=== PATIENT | male | born 1955 | race Caucasian/White ===

== ENCOUNTER 2018-07-26 08:32 | Inpatient (IN) | payer OTHER ==
[~2018-07-26] VITALS: Ht 190.5 cm; Wt 109.8 kg
[2018-07-26 08:45] VITALS: Ht 190.5 cm; Wt 109.8 kg
[2018-07-26] MEDS ORDERED: MESTINON60 MG PO (09:19)
[2018-07-26] MEDS ORDERED: LANTUS SOLOS100 U/M1 SQ ×2 (09:19→09:40)
[2018-07-26] MEDS ORDERED: KEFLEX500 M1 PO (09:19)
[2018-07-26] MEDS ORDERED: LOV40I SQ (09:20)
[2018-07-26] MEDS ORDERED: BAC (09:21)
[2018-07-26] MEDS ORDERED: CAPSAICIN60 GM (09:22)
[2018-07-26] MEDS ORDERED: REG10 PO (09:23)
[2018-07-26] MEDS ORDERED: TUMS CH (09:24)
[2018-07-26 09:25] LABS: BASOPHIL % 0.3 % (0-2); PLATELET COUNT 321 x10^3mcL (130-400)
[2018-07-26] MEDS ORDERED: MORPHINE SULFAT30 M2 PO ×2 (09:26→09:27)
[2018-07-26] MEDS ORDERED: COLACE100 MG PO (09:26)
[2018-07-26] MEDS ORDERED: XOPENEX1.25 MG/3 (09:27)
[2018-07-26] MEDS ORDERED: DULERA1 AR3 INH (09:28)
[2018-07-26] MEDS ORDERED: LIQUITEARS15 ML OP (09:28)
[2018-07-26] MEDS ORDERED: PRILOSEC OTC20 M1 PO (09:29)
[2018-07-26 09:34] LABS: RED CELL DISTRIBUTION WIDTH 17.6 % (11.5-14.5)
[2018-07-26 09:36] LABS: rbc morphology (normal/abnorm) ABNORMAL (NORMAL)
[2018-07-26] MEDS ORDERED: KETOROLAC TROMET5 M1 (09:38)
[2018-07-26] MEDS ORDERED: AFREZZA SQ (09:39)
[2018-07-26] MEDS ORDERED: NOR10 PO (09:40)
[2018-07-26 09:41] LABS: BILIRUBIN TOTAL 0.4 mg/dL (0.20-1.00); CALCIUM 9.3 mg/dL (8.5-10.1); CARBON DIOXIDE 20.2 mmol/L (21-32); FREE T4 1.45 ng/dL (0.76-1.46); POTASSIUM SERUM 4.2 mmol/L (3.5-5.1)
[2018-07-26] MEDS ORDERED: ENFAMIL D-V400 IU/ML PO (09:41)
[2018-07-26] MEDS ORDERED: FINASTERIDE5 M1 PO (09:41)
[2018-07-26] MEDS ORDERED: REPLENS1 CRE (09:42)
[2018-07-26] MEDS ORDERED: LYRICA75 M1 PO (09:43)
[2018-07-26] MEDS ORDERED: SPIRIVA18 MC1 INH (09:43)
[2018-07-26] MEDS ORDERED: TAMSULOSIN HYD0.4 M1 PO (09:43)
[2018-07-26] MEDS ORDERED: PRE20 PO (09:43)
[2018-07-26] MEDS ORDERED: VITAMIN B121000 MCG PO (09:43)
[2018-07-26] MEDS ORDERED: ALPHAGAN P5 M1 (09:44)
[2018-07-26] MEDS ORDERED: DORZOLAMIDE HCL10 ML (09:44)
[2018-07-26] MEDS ORDERED: ASSORTED FRUIT G4 GM PO (09:45)
[2018-07-26] MEDS ORDERED: HEPARIN LOCK FLU (09:45)
[2018-07-26] MEDS ORDERED: LATANOPROST2.5 ML OU (09:45)
[2018-07-26 09:47] LABS: CREATININE SERUM 4.2 mg/dL (0.7-1.3); TOTAL PROTEIN, SERUM 8.3 g/dL (6.4-8.2)
[2018-07-26 12:11] VITALS: BP 105/56
[2018-07-26 17:22] VITALS: BP 127/63
[2018-07-26 20:44] VITALS: BP 117/55
[2018-07-26 22:36] VITALS: BP 113/58
[2018-07-26 23:35] LABS: UA SPECIFIC GRAVITY >=1.030 (1.005-1.035); microscopic required? YES; urine erythrocyte 3+ (NEGATIVE)
[2018-07-26 23:55] LABS: AMPHETAMINE QUAL UR NONE DETECTED (See below)
[2018-07-27 05:30] VITALS: BP 96/57
[2018-07-27 07:28] LABS: BASOPHIL % 0.7 % (0-2); PLATELET COUNT 248 x10^3mcL (130-400)
[2018-07-27 07:29] LABS: RED CELL DISTRIBUTION WIDTH 16.9 % (11.5-14.5)
[2018-07-27 07:41] LABS: BILIRUBIN TOTAL 0.46 mg/dL (0.20-1.00); CALCIUM 8.5 mg/dL (8.5-10.1); MAGNESIUM 1.9 mg/dL (1.8-2.4); POTASSIUM SERUM 3.9 mmol/L (3.5-5.1); TOTAL PROTEIN, SERUM 7.4 g/dL (6.4-8.2)
[2018-07-27 07:50] LABS: ALBUMIN 2.5 g/dL (3.4-5.0); CREATININE SERUM 5.1 mg/dL (0.7-1.3)
[2018-07-27 10:05] VITALS: BP 109/48
[2018-07-27 13:02] VITALS: BP 105/69
[2018-07-27 17:08] VITALS: BP 98/63
[2018-07-27 20:58] VITALS: BP 102/65
[2018-07-28 06:08] VITALS: BP 104/64
[2018-07-28 07:42] LABS: BILIRUBIN TOTAL 0.35 mg/dL (0.20-1.00); CALCIUM 8.7 mg/dL (8.5-10.1); CARBON DIOXIDE 24.7 mmol/L (21-32); CREATININE SERUM 2.3 mg/dL (0.7-1.3); PHOSPHOROUS 3.8 mg/dL (2.5-4.9); POTASSIUM SERUM 4.3 mmol/L (3.5-5.1); TOTAL PROTEIN, SERUM 7.6 g/dL (6.4-8.2)
[2018-07-28 07:43] LABS: ALBUMIN 2.4 g/dL (3.4-5.0)
[2018-07-28 09:04] LABS: BASOPHIL % 0.1 % (0-2); PLATELET COUNT 233 x10^3mcL (130-400)
[2018-07-28 09:07] LABS: RED CELL DISTRIBUTION WIDTH 17.6 % (11.5-14.5)
[2018-07-28 10:04] VITALS: BP 105/59
[2018-07-28 12:43] VITALS: BP 110/72
[2018-07-28 16:51] VITALS: BP 124/71
[2018-07-28 19:20] VITALS: BP 105/56
[2018-07-29 05:33] VITALS: BP 125/78
[2018-07-29 06:54] LABS: BASOPHIL % 0.1 % (0-2); PLATELET COUNT 251 x10^3mcL (130-400)
[2018-07-29 06:59] LABS: ALBUMIN 2.3 g/dL (3.4-5.0); BILIRUBIN TOTAL 0.2 mg/dL (0.20-1.00); CARBON DIOXIDE 25.2 mmol/L (21-32); CREATININE SERUM 1.3 mg/dL (0.7-1.3); PHOSPHOROUS 2.6 mg/dL (2.5-4.9); POTASSIUM SERUM 4.2 mmol/L (3.5-5.1); TOTAL PROTEIN, SERUM 7.4 g/dL (6.4-8.2)
[2018-07-29 07:20] LABS: RED CELL DISTRIBUTION WIDTH 17.3 % (11.5-14.5)
[2018-07-29 09:15] VITALS: BP 102/72
[2018-07-29 10:27] VITALS: BP 102/72
== END 2018-07-29 12:25 | disposition other institution (70) | DRG 871 ==
LOC: ED 08:32 → DU 10:13
PROVIDERS: Emergency Medicine; Internal Medicine
DX: A41.9 Sepsis, unspecified organism (principal); J18.9 Pneumonia, unspecified organism; J96.01 Acute respiratory failure with hypoxia; N17.9 Acute kidney failure, unspecified; J44.0 Chronic obstructive pulmonary disease with (acute) lower respiratory infection; D63.8 Anemia in other chronic diseases classified elsewhere; Z88.8 Allergy status to other drugs, medicaments and biological substances; G70.00 Myasthenia gravis without (acute) exacerbation; I25.10 Atherosclerotic heart disease of native coronary artery without angina pectoris; Z86.711 Personal history of pulmonary embolism; E11.22 Type 2 diabetes mellitus with diabetic chronic kidney disease; N18.9 Chronic kidney disease, unspecified; I48.91 Unspecified atrial fibrillation; Z79.4 Long term (current) use of insulin; Z79.899 Other long term (current) drug therapy; E11.65 Type 2 diabetes mellitus with hyperglycemia; C67.9 Malignant neoplasm of bladder, unspecified
CPT/HCPCS: 82962; 83880; 84439; 90658; J1644; J2543; J3370; J7030; J7040; J7050; J7512; J7620; J7626; J8597; Q0092

== ENCOUNTER → 2019-06-01 | Outpatient (CLI) | payer OTHER ==
[~2019-06-01] MED LIST: AFREZZA SQ; ALPHAGAN P5 M1; ASSORTED FRUIT G4 GM PO; BAC; CAPSAICIN60 GM; COLACE100 MG PO; DORZOLAMIDE HCL10 ML; DULERA1 AR3 INH; ENFAMIL D-V400 IU/ML PO; FINASTERIDE5 M1 PO; HEPARIN LOCK FLU; KEFLEX500 M1 PO; KETOROLAC TROMET5 M1; LANTUS SOLOS100 U/M1 SQ; LATANOPROST2.5 ML OU; LIQUITEARS15 ML OP; LOV40I SQ; LYRICA75 M1 PO; MESTINON60 MG PO; MORPHINE SULFAT30 M2 PO; NOR10 PO; PRE20 PO; PRILOSEC OTC20 M1 PO; REG10 PO; REPLENS1 CRE; SPIRIVA18 MC1 INH; TAMSULOSIN HYD0.4 M1 PO; TUMS CH; VITAMIN B121000 MCG PO; XOPENEX1.25 MG/3
== END | disposition home or self-care (01) ==
LOC: CA 10:38
DX: I71.4 Abdominal aortic aneurysm, without rupture (principal)
CPT/HCPCS: 36600

== ENCOUNTER → 2019-06-24 | Outpatient (CLI) | payer OTHER ==
--- NOTE | 2019-06-24 08:05 | NUR ---
PT BROUGHT FROM ER TO OPS VIA MEDICAL TRANSPORTATION [facility] FOR ABG. ADMITTING VERIFYING PAPERWORK AND ORDER. PT BROUGHT IN WITH OXYGEN IN PLACE.
--- NOTE | 2019-06-24 08:10 | NUR ---
ADMITTING PAPERWORK SIGNED. OXYGEN REMOVED AT THIS TIME PER ORDER TO HAVE ABG DRAWN ON RA X 30 MIN. CARDIO NOTIFIED. NO RESP DISTRESS AT THIS TIME. TWO GUARDS AT BEDSIDE WITH PT.
--- NOTE | 2019-06-24 08:24 | NUR ---
PT ASSISTED UP TO BATHROOM BY ATTENDANTS. NO RESP DISTRESS.
--- NOTE | 2019-06-24 08:50 | NUR ---
ABG RESULTS OBTAINED. PULSE OX ON RA 93%. COPY PLACED IN PTS FOLDER. PT DISCHARGED WITH GUARDS AND MEDICAL TRANSPORTATION TO [facility] AT THIS TIME. OXYGEN NOW IN PLACE 2L FOR TRANSPORTATION.
== END | disposition home or self-care (01) ==
LOC: CA 08:09
DX: J44.9 Chronic obstructive pulmonary disease, unspecified (principal)
CPT/HCPCS: 36600

== ENCOUNTER 2019-12-29 15:26 | Inpatient (IN) | payer OTHER ==
[~2019-12-29] VITALS: Ht 190.5 cm; Wt 114.0 kg
[~2019-12-29 15:26] MED LIST changes: -LIQUITEARS15 ML OP; +LIQUITEARS15 ML OS; +VITAMIN B121 TA1 PO; -VITAMIN B121000 MCG PO
[2019-12-29 15:47] VITALS: Ht 190.5 cm; Wt 114.0 kg
[2019-12-29] MEDS ORDERED: DORZOLAMIDE HYD10 ML OU (16:22)
[2019-12-29 16:38] LABS: UA SPECIFIC GRAVITY 1.015 (1.005-1.035); microscopic required? YES; urine erythrocyte NEGATIVE (NEGATIVE)
[2019-12-29 16:40] LABS: BASOPHIL % 0 % (0-2); PLATELET COUNT 163 x10^3mcL (130-400); RED CELL DISTRIBUTION WIDTH 17.3 % (11.5-14.5)
[2019-12-29] MEDS ORDERED: MS CONTIN30 M1 PO (16:41)
[2019-12-29] MEDS ORDERED: APAP325 MG PO (16:42)
[2019-12-29] MEDS ORDERED: ATORVASTATIN CA40 M1 PO (16:42)
[2019-12-29] MEDS ORDERED: ENALAPRIL MALEAT5 MG PO (16:42)
[2019-12-29] MEDS ORDERED: SINGULAIR10 MG PO (16:43)
[2019-12-29] MEDS ORDERED: ZOFRAN8 MG PO (16:43)
[2019-12-29] MEDS ORDERED: LYRICA50 M1 PO (16:43)
[2019-12-29] MEDS ORDERED: MSIR15 PO (16:44)
[2019-12-29] MEDS ORDERED: ELIQUIS5 MG PO (16:46)
[2019-12-29] MEDS ORDERED: ANUSOL-HC30 GM PR (16:46)
[2019-12-29] MEDS ORDERED: DILTIAZEM HCL120 M3 PO (16:46)
[2019-12-29] MEDS ORDERED: HUMULIN R100 U/1 M1 SQ ×2 (16:47→17:05)
[2019-12-29] MEDS ORDERED: [UNRECOGNIZED DRUG - OTHER] PR (16:48)
[2019-12-29] MEDS ORDERED: NASACORT A55 MCG/Ac1 NS (16:48)
[2019-12-29] MEDS ORDERED: ZANTAC 150150 MG PO (16:49)
[2019-12-29 16:51] LABS: CALCIUM 9.3 mg/dL (8.5-10.1); CARBON DIOXIDE 28.8 mmol/L (21-32); CHLORIDE SERUM 103 mmol/L (98-107); CREATININE SERUM 2.7 mg/dL (0.7-1.3); GFR1 25 mL/min; GLUCOSE SERUM 116 mg/dL (74-106); POTASSIUM SERUM 4.4 mmol/L (3.5-5.1); SODIUM SERUM 140 mmol/L (136-145)
[2019-12-29] MEDS ORDERED: BRIMONIDINE TART5 M1 OU (16:59)
[2019-12-29] MEDS ORDERED: PROS NEB (17:00)
[2019-12-29] MEDS ORDERED: [UNRECOGNIZED DRUG - OTHER] CH (17:01)
[2019-12-29] MEDS ORDERED: TAMSULOSIN HCL0.4 MG PO (17:01)
[2019-12-29 17:03] LABS: T3 TOTAL 0.73 ng/mL
[2019-12-29] MEDS ORDERED: DITROPAN XL5 MG PO (17:06)
[2019-12-29] MEDS ORDERED: NATURE'S BLEND400 I2 PO (17:06)
[2019-12-29] MEDS ORDERED: LANTI SQ (17:07)
[2019-12-29] MEDS ORDERED: XOPENEX HF0.045 MG/1 INH (17:07)
[2019-12-29] MEDS ORDERED: SPIRIVA18 MC1 INH (17:07)
[2019-12-29] MEDS ORDERED: MIRALAX17 GM PO (17:07)
[2019-12-29] MEDS ORDERED: PYRIDOSTIGMINE180 MG PO (17:08)
[2019-12-29] MEDS ORDERED: MES60 PO (17:08)
[2019-12-29] MEDS ORDERED: CAPSAICIN42.5 GM TOP (17:09)
[2019-12-29] MEDS ORDERED: FIBER LAX625 MG PO (17:09)
[2019-12-29 17:19] LABS: ALKALINE PHOSPHATASE 54 U/L (46-116); ALT/SGPT 47 U/L (16-63); AST/SGOT 29 U/L (15-37); BILIRUBIN TOTAL 0.8 mg/dL (0.20-1.00)
[2019-12-29 17:36] LABS: C REACTIVE PROTEIN 14.2 mg/dL (<=0.9); TOTAL PROTEIN, SERUM 5.9 g/dL (6.4-8.2)
[2019-12-29 17:42] LABS: ERYTHROCYTE SED RATE 13 mm/hr (0-20)
[2019-12-29 17:59] LABS: FREE T4 1.1 ng/dL (0.76-1.46); FREE THYROXINE INDEX 2.3 ug/dL (1.4-4.5)
[2019-12-29 19:00] LABS: MAGNESIUM 1.6 mg/dL (1.8-2.4)
[2019-12-29 19:08] LABS: CHOLESTEROL/HDL RATIO 3.1
[2019-12-29 22:16] VITALS: BP 108/55
[2019-12-29 23:29] VITALS: BP 82/52
[2019-12-30 03:40] VITALS: BP 92/55
[2019-12-30 04:58] LABS: BASOPHIL % 0.1 % (0-2); PLATELET COUNT 146 x10^3mcL (130-400)
[2019-12-30 05:02] LABS: CALCIUM 8.8 mg/dL (8.5-10.1); CARBON DIOXIDE 27.3 mmol/L (21-32)
[2019-12-30 05:09] LABS: RED CELL DISTRIBUTION WIDTH 17.5 % (11.5-14.5)
[2019-12-30 08:00] VITALS: BP 86/55
[2019-12-30 12:00] VITALS: BP 107/56
[2019-12-30 16:00] VITALS: BP 118/52
[2019-12-30 19:50] VITALS: BP 94/61
[2019-12-30 23:45] VITALS: BP 113/59
[2019-12-31 05:11] VITALS: BP 132/62
[2019-12-31 08:38] VITALS: BP 117/60
[2019-12-31 12:17] VITALS: BP 120/60
[2019-12-31 21:00] VITALS: BP 123/63
[2020-01-01 06:31] LABS: BASOPHIL % 0.1 % (0-2); PLATELET COUNT 155 x10^3mcL (130-400)
[2020-01-01 06:32] LABS: RED CELL DISTRIBUTION WIDTH 15.4 % (11.5-14.5)
[2020-01-01 06:46] LABS: ALKALINE PHOSPHATASE 61 U/L (46-116); ALT/SGPT 28 U/L (16-63); AST/SGOT 20 U/L (15-37); BILIRUBIN TOTAL 0.8 mg/dL (0.20-1.00); CALCIUM 9.5 mg/dL (8.5-10.1); CARBON DIOXIDE 22.5 mmol/L (21-32); CHLORIDE SERUM 102 mmol/L (98-107); CREATININE SERUM 1.2 mg/dL (0.7-1.3); GFR1 > 60 mL/min; GLUCOSE SERUM 209 mg/dL (74-106); POTASSIUM SERUM 4.2 mmol/L (3.5-5.1); SODIUM SERUM 137 mmol/L (136-145); TOTAL PROTEIN, SERUM 6.6 g/dL (6.4-8.2)
[2020-01-01 06:49] LABS: ALBUMIN 2.6 g/dL (3.4-5.0)
[2020-01-01 07:24] VITALS: BP 124/59
[2020-01-01 08:55] VITALS: BP 118/60
[2020-01-01 12:00] VITALS: BP 114/62
[2020-01-01 16:44] VITALS: BP 102/53
[2020-01-01 20:00] VITALS: BP 97/49
[2020-01-02 05:32] VITALS: BP 100/52
[2020-01-02 06:03] LABS: PLATELET COUNT 170 x10^3mcL (130-400)
[2020-01-02 06:16] LABS: BASOPHIL % 0 % (0-2); RED CELL DISTRIBUTION WIDTH 16.8 % (11.5-14.5)
[2020-01-02 06:23] LABS: CALCIUM 9.4 mg/dL (8.5-10.1); CARBON DIOXIDE 25.1 mmol/L (21-32); CREATININE SERUM 1.3 mg/dL (0.7-1.3); POTASSIUM SERUM 4.3 mmol/L (3.5-5.1)
[2020-01-02 08:04] VITALS: BP 115/62
[2020-01-02 11:44] VITALS: BP 120/71
== END 2020-01-02 16:48 | disposition left against medical advice (07) | DRG 871 ==
LOC: ED 15:26 → IC 18:07 → DU 12-30 23:37
PROVIDERS: Internal Medicine; Specialist; ADMIT Internal Medicine
DX: A41.9 Sepsis, unspecified organism (principal); I21.4 Non-ST elevation (NSTEMI) myocardial infarction; J18.9 Pneumonia, unspecified organism; J96.01 Acute respiratory failure with hypoxia; N39.0 Urinary tract infection, site not specified; I13.0 Hypertensive heart and chronic kidney disease with heart failure and stage 1 through stage 4 chronic kidney disease, or unspecified chronic kidney disease; C67.9 Malignant neoplasm of bladder, unspecified; E11.43 Type 2 diabetes mellitus with diabetic autonomic (poly)neuropathy; E11.65 Type 2 diabetes mellitus with hyperglycemia; K31.84 Gastroparesis; J44.9 Chronic obstructive pulmonary disease, unspecified; G70.00 Myasthenia gravis without (acute) exacerbation; I25.10 Atherosclerotic heart disease of native coronary artery without angina pectoris; G47.33 Obstructive sleep apnea (adult) (pediatric); Z99.81 Dependence on supplemental oxygen; Z68.30 Body mass index [BMI] 30.0-30.9, adult; Z86.711 Personal history of pulmonary embolism; Z79.01 Long term (current) use of anticoagulants; Z79.84 Long term (current) use of oral hypoglycemic drugs; Z79.02 Long term (current) use of antithrombotics/antiplatelets; N18.9 Chronic kidney disease, unspecified; I50.9 Heart failure, unspecified; E11.22 Type 2 diabetes mellitus with diabetic chronic kidney disease; Z03.818 Encounter for observation for suspected exposure to other biological agents ruled out
CPT/HCPCS: 36600; 82962; 83880; 84439; 87804; G0378; J0456; J0696; J1815; J2270; J2405; J2543; J2920; J3490; J3535; J7030; J7512; J7626; Q0092; U0002

== ENCOUNTER 2020-03-18 05:57 | Inpatient (IN) | payer OTHER, SELFPAY ==
[2020-03-18] VITALS (11 sets, daily range): BP systolic 70–99; BP diastolic 22–46
[~2020-03-18] VITALS: Ht 190.5 cm; Wt 113.9 kg
[~2020-03-18 05:57] MED LIST changes: +ANUSOL-HC30 GM PR; +APAP325 MG PO; +ATORVASTATIN CA40 M1 PO; +BRIMONIDINE TART5 M1 OU; +CAPSAICIN42.5 GM TOP; +DILTIAZEM HCL120 M3 PO; +DITROPAN XL5 MG PO; +DORZOLAMIDE HYD10 ML OU; +ELIQUIS5 MG PO; +ENALAPRIL MALEAT5 MG PO; +FIBER LAX625 MG PO; +HUMULIN R100 U/1 M1 SQ; +LANTI SQ; +LYRICA50 M1 PO; +MES60 PO; +MIRALAX17 GM PO; +MS CONTIN30 M1 PO; +MSIR15 PO; +NASACORT A55 MCG/Ac1 NS; +NATURE'S BLEND400 I2 PO; +PROS NEB; +PYRIDOSTIGMINE180 MG PO; +SINGULAIR10 MG PO; +TAMSULOSIN HCL0.4 MG PO; +XOPENEX HF0.045 MG/1 INH; +ZANTAC 150150 MG PO; +ZOFRAN8 MG PO; +[UNRECOGNIZED DRUG - OTHER] CH; +[UNRECOGNIZED DRUG - OTHER] PR
--- NOTE | 2020-03-18 06:04 | NUR ---
PT CALLY CO ALOC. PER CAREER SERVICES ASSISTANT PT WAS LAST SEEN IN BED AT 0400 A/O X4. PT WAS FOUND BY STAFF REPAIRER ART OBJECTS WITH VOMIT, SITTING IN HIS BED. PER CAREER SERVICES ASSISTANT PT WAS A/O X4 ON SCENE. PER CAREER SERVICES ASSISTANT WHILE IN TRANSIT, PT STARTED TO BECOME MORE CONFUSED. PT SITTING IN BED, PT OPENS EYES AND MOVES LIMBS. PT STS "OUCH" TO PAIN. PER CAREER SERVICES ASSISTANT PT WAS SWABBED FOR COVID W/NEGITIVE RESULT.
--- NOTE | 2020-03-18 06:05 | NUR ---
PT SHOCKED AT 150J FOR HEART RATE OVER 200
--- NOTE | 2020-03-18 06:14 | NUR ---
PT GIVEN 975MG TYLENOL FL FOR TEMP
--- NOTE | 2020-03-18 06:20 | NUR ---
BLOOD CULTURES COLLECTED BY
--- NOTE | 2020-03-18 06:33 | NUR ---
PT OPENED EYES. PT MOVING LIMBS. MD AT BEDSIDE.
--- NOTE | 2020-03-18 06:39 | NUR ---
PT EYES OPEN RESPONDING TO PAIN. PT MOVES LIMBS. URINARY CATHETER PLACED.
--- NOTE | 2020-03-18 06:46 | NUR ---
MADE AWARE OF PT BP. STS RUN 3RD LITER.
--- NOTE | 2020-03-18 06:47 | NUR ---
SPOKE WITH LEONARD JOSE FROM [facility] REGARDING PT COVID TEST RESULT. PER DAMON, THERE ARE NO LAB RESULTS FOR COVID IN THE PT CHART.
--- NOTE | 2020-03-18 07:03 | NUR ---
INCREASED LEVO TO 4MCG/MIN FOR MAP LESS THAN 60 PER MD
--- NOTE | 2020-03-18 07:09 | NUR ---
LEVO INCREASED TO 6MCG/MIN FOR MAP BELOW 60
--- NOTE | 2020-03-18 07:11 | NUR ---
ROCEPIN STOP FOR INFUSION OF AMNIODRIONE.
--- NOTE | 2020-03-18 07:12 | NUR ---
RECEIVED REPORT FROM DENNISE VALLE. PT IS LETHARGIC AND MOVES TO NOXIOUS STIMULI. PT OPENS EYES TO VOICE. PT STATED HIS NAME CORRECTLY. UNABLE TO FOLLOW OTHER COMMANDS AT THIS TIME.
--- NOTE | 2020-03-18 07:14 | NUR ---
INCREASED LEVO TO 8MCG/MIN
--- NOTE | 2020-03-18 07:15 | NUR ---
PT PLACED TO 3L NC FROM NON REBREATHER MASK.
--- NOTE | 2020-03-18 07:20 | NUR ---
ENTERED PT'S RM WEARING GOGGLES, N95, FACE SHIELD, & DISPOSABLE GOWN AND GLOVES.
--- NOTE | 2020-03-18 07:21 | NUR ---
PER MD INCREASED LEVO TO 12MCG/MIN TO MAINTAIN MAP OF 60 OR ABOVE
[2020-03-18 07:29] LABS: BASOPHIL % 0.3 % (0-2); PLATELET COUNT 166 x10^3mcL (130-400)
[2020-03-18 07:32] LABS: RED CELL DISTRIBUTION WIDTH 17.9 % (11.5-14.5)
--- NOTE | 2020-03-18 07:45 | NUR ---
PT PLACED ON 4L NC PER DR BURR ORDER.
--- NOTE | 2020-03-18 07:49 | NUR ---
PT RETURNED FROM CT SCAN AND PLACED BACK ON FULL MONITORS. DR BURR AT BEDSIDE SPEAKING TO PT AT BEDSIDE. PT REPORTS HE WAS TESTED FOR COVID 3 TIMES AND IT WAS NEGATIVE. PER DR BURR PT HAS BL PNEUMONIA SHOWN TO CXR.
--- NOTE | 2020-03-18 07:53 | NUR ---
PT INFORMED OF CENTRAL LINE PLACEMENT AND GAVE VERBAL OK. PT ANSWERS QUESTIONS APPROPRIATELY AT THIS TIME AND IS ORIENTED X 4 - DROWSY.
--- NOTE | 2020-03-18 08:01 | NUR ---
LEVOPHED DRIP AT 20G. DR BURR AWARE. BP 82/43 MAP 62 HR 134
--- NOTE | 2020-03-18 08:02 | NUR ---
LACTATED RINGERS INFUSING W.O. PER DR BURR VERBAL ORDER. OK TO HOLD VANCO AT THIS TIME UNTIL CENTRAL LINE IS ESTABLISHED.
[2020-03-18 08:10] LABS: CARBON DIOXIDE 24.8 mmol/L (21-32); CHLORIDE SERUM 104 mmol/L (98-107); CREATININE SERUM 2.3 mg/dL (0.7-1.3); GFR1 30 mL/min; GLUCOSE SERUM 160 mg/dL (74-106); POTASSIUM SERUM 4.1 mmol/L (3.5-5.1); SODIUM SERUM 140 mmol/L (136-145)
--- NOTE | 2020-03-18 08:12 | NUR ---
TIME OUT DONE PRIOR TO CENTRAL LINE PLACEMENT FOR SEPTIC SHOCK. VERBAL CONSENT OK'D BY PATIENT.
[2020-03-18 08:14] LABS: ALKALINE PHOSPHATASE 63 U/L (46-116); ALT/SGPT 111 U/L (16-63); AST/SGOT 74 U/L (15-37); BILIRUBIN TOTAL 0.7 mg/dL (0.20-1.00)
[2020-03-18 08:17] LABS: ALBUMIN 2.4 g/dL (3.4-5.0); CHOLESTEROL 93 mg/dL (<200); TOTAL PROTEIN, SERUM 4.8 g/dL (6.4-8.2)
--- NOTE | 2020-03-18 08:21 | NUR ---
LEVOPHED KEPT AT 24MCG AT THIS TIME BP 93/46 MAP 62 HR 133
--- NOTE | 2020-03-18 08:26 | NUR ---
UNSUCCESSFUL L CENTRAL LINE PLACEMENT BY DR BURR. NO PVC'S OR IRREGULAR CHANGE IN CARDIAC RHYTHM DURING ATTEMPT.
--- NOTE | 2020-03-18 08:30 | NUR ---
PER DR. BURR, NO PXCR NEEDED S/P UNSUCCESSFUL CENTRAL LINE ATTEMPT.
[2020-03-18 08:40] LABS: AMPHETAMINE QUAL UR NONE DETECTED (See below)
--- NOTE | 2020-03-18 09:04 | NUR ---
VANCO INFUSING TO RAC. PORTACATH ACCESSED. NO BLOOD RETURN DRAWN WITH 5 ML SYRINGE. 10ML NS FLUSHED WITH LITTLE RESISTANCE. PT STATES PORTACATH WAS LAST USED JUN 2019 FOR CHEMO. PT REPORTS REMISSION TO BLADDER CANCER
[2020-03-18] MEDS ORDERED: HEMORRHOIDAL S1 EACH PR (09:07)
--- NOTE | 2020-03-18 09:07 | NUR ---
DR BURR AT BEDSIDE FOR RE EVAL. LEVOPHED DRIP AT 26 MCG AT THIS TIME
--- NOTE | 2020-03-18 09:09 | NUR ---
MED REC COMPLETED USING MED LIST SENT FROM [facility].
--- NOTE | 2020-03-18 09:11 | NUR ---
PT HAD LARGE BM, FORMED BROWN, REGULAR SIZED.
--- NOTE | 2020-03-18 09:18 | NUR ---
PT DE-SAT TO 90% ON 4L NC AFTER LARGE BM. DR BURR INFORMED. PT PLACED TO 15 L NON REBREATHER AT THIS TIME. O2 SAT STILL READING 92%
--- NOTE | 2020-03-18 09:31 | NUR ---
LEVOPHED AT 30 MCG AT THIS TIME
--- NOTE | 2020-03-18 09:32 | NUR ---
INFORMED DR BURR OF LOW BP
--- NOTE | 2020-03-18 09:34 | NUR ---
PT C/O CHEST PAIN. EKG IN PROG
--- NOTE | 2020-03-18 09:50 | NUR ---
DOPAMINE INITIATED AT 5 MCG.
--- NOTE | 2020-03-18 10:00 | NUR ---
PRIOR TO DR BURR ATTEMPTING CENTRAL LINE PLACEMENT, PT SAT UP ABRUPTLY AND VOMITED LARGE AMOUNT. AWAITING STERILE EQUIPMENT TO BE FULLY AVAILABLE PRIOR TO ATTEMPTING AGAIN.
--- NOTE | 2020-03-18 10:20 | NUR ---
DR BURR AT BEDSIDE FOR CENTRAL LINE PLACEMENT PROCEDURE. PT IS ON ANIMAL RIDE ATTENDANT. WILL MONITOR FOR CHANGES IN RHYTHM
--- NOTE | 2020-03-18 10:22 | NUR ---
PRIOR TO START OF CENTRAL LINE PLACEMENT, PT SAT UP AND VOMITED AGAIN. VERBAL ORDER TO GIVE REGLAN 10MG IVP PER DR BURR
--- NOTE | 2020-03-18 10:26 | NUR ---
PT HAD A SHORT RUN OF SVT. DR BURR AWARE. PT HR NOW 149. SVT RATE WAS 200'S ON MONITOR.
[2020-03-18 10:28] LABS: UA SPECIFIC GRAVITY >=1.030 (1.005-1.035); microscopic required? YES; urine erythrocyte 2+ (NEGATIVE)
--- NOTE | 2020-03-18 10:28 | NUR ---
SECOND SHORT RUN OF SVT SEEN. DR BURR AWARE.
--- NOTE | 2020-03-18 10:30 | NUR ---
3RD SHORT RUN OF SVT SEEN. DR BURR AWARE. PT IS CONNECTED TO PADS.
--- NOTE | 2020-03-18 10:33 | NUR ---
LACTIC ACID DRAWN VIA CENTRAL LINE ON R GROIN AND GIVEN TO LAB.
--- NOTE | 2020-03-18 10:35 | NUR ---
R GROIN CENTRAL LINE ESTABLISHED. NO CHANGES IN CARDIAC RHYTHM DURING PROCEDURE
--- NOTE | 2020-03-18 10:42 | NUR ---
DOPAMINE DRIP PLACED TO CENTRAL LINE BLUE PORT.
--- NOTE | 2020-03-18 12:18 | NUR ---
RC'D CALL FROM DR BROWN, UPDATED ON PTS CURRENT STATUS. QUESTIONS ANSWERED. NOTIFIED THAT PTS CURRENT CRITICAL LAB LACTIC ACID 5.7. ALSO NOTIFIED THAT PTS CURRENT HEART RATE RESULTS IN 140'S AND SPO2 IN THE HIGH 80'2 [address] BROWN, PUT PT ON HIGH FLOW AND CONTINUE TO MONITOR. ARRANGEMENTS BEING MADE TO TRANSITION PT TO HIGH FLOW AT THIS TIME
--- NOTE | 2020-03-18 12:33 | NUR ---
DR DEUTSCH TO BEDSIDE TO DISCUSS PT POC. UPDATED ON PTS CURRENT STATUS. QUESTIONS ANSWERED. NEW ORDERS TO BE CARRIED OUT AT THIS TIME
--- NOTE | 2020-03-18 13:03 | NUR ---
PT SPO2 MID 80'S ON 15L NRB. PT EDUCATED AND INFORMED ON PRONING HIMSELF. PT REFUSING TO PRONE AT THIS TIME. NOTIFIED OF THE IMPORTANCE OF PRONING SELF. WILL CONT TO MONITOR
--- NOTE | 2020-03-18 13:30 | NUR ---
PRONE PT WITH NON-REBREATHER PER ORDER. PT NOT TOLERATE WELL, O2 SAT DESATING FROM 80% TO 60-70%. NOTIFY ED DR. BURR ABOUT PT'S CURRENT STATUS.
--- NOTE | 2020-03-18 14:36 | NUR ---
DR BURR, ESME RN AND DESHAUN RT PRESENT AT BEDSIDE FOR INTUBATION. PT REMAINS SATTING IN THE LOW 80'S ON 15L NRB. PT LETHARGIC AND RESTLESS. 1427- 5MG VERSED IVP AND FLUSHED. 1428- 100MG ROCURRONIUM IVP AND FLUSHED. 1429- PT INTUBATED WITHOUT INCIDENT. OGT PLACED AT THIS TIME BY DR BURR. XRAY CALLED AT THIS TIME FOR CONFIRMATION OF PLACEMENT.
--- NOTE | 2020-03-18 14:46 | NUR ---
RC'D CALL FROM DR BROWN REGARDING UPDATE ON PTS CURRENT STATUS. UPDATED ON PTS CURRENT STATUS. QUESTIONS ANSWERED. NEW ORDERS TO BE CARRIED OUT AT THIS TIME
--- NOTE | 2020-03-18 14:53 | NUR ---
XRAY PRESENT AT BEDSIDE
--- NOTE | 2020-03-18 15:00 | NUR ---
RT PRESENT AT BEDSIDE. PTS CURRENT AC VENT SETTINGS FOLLOWED, TV450, RATE 30, PEEP 10, FIO2 100%. VITAL SIGNS FOLLOWED, BP 78/41 (51), HR 135, RATE 30, SPO2 84. PT CURRENTY MAXED ON PRESSORS FOLLOWED, LEVOPHED 30MCG/MIN, NEOSYNEPHRINE 300MCG/MIN, AND DOPAMINE 20MCG/KG/MIN. WILL CONT TO MONITOR
--- NOTE | 2020-03-18 16:05 | NUR ---
RT SWITCH VENT SETTING TO AC/PCV MODE: PRESSURE 18, RR 15, PEEP 10, FIO2 100%. O2 SAT 94%. PT'S BP 74/42, DOPAMINE, LEVOPHED, TATYANA-SYNEPHRINE ARE ALL ON MAX DOSE.
--- NOTE | 2020-03-18 19:00 | NUR ---
PT SEDATED, CALM. REMOVED BILATERAL SOFT WRIST RESTRAINTS. WILL CONTINUE TO MONITOR.
--- NOTE | 2020-03-18 19:20 | NUR ---
RECEIVED REPORT FROM LEONARD VICTORIA. WILL RESUME CARE. PT INTUBATED & SEDATED ON FENTANYL 1.25 MG/KG/H & VERSED 1.5 MG/H. PT ON DOMAPINE @10 MCG/KG/MIN, NEOSYNEPRHINE 300 MCG/MIN, & LEVOPHED 30 MCG/MIN. BP 85/38(60). PT IN NO ACUTE RESPIRATORY DISTRESS. RSS 5. WILL RESUME CARE.
--- NOTE | 2020-03-18 20:27 | NUR ---
DOPAMINE DRIP OFF AT THIS TIME. WILL CONTINUE TO MONITOR.
--- NOTE | 2020-03-18 21:27 | NUR ---
Spoke to with new orders. New orders for Vasopressin drip noted and carried out. Will continue to monitor.
--- NOTE | 2020-03-18 22:15 | NUR ---
TITRATED VASOPRESSIN TO 0.04 U/MIN. BP 86/39(58). WILL CONTINUE TO MONITOR.
--- NOTE | 2020-03-18 22:23 | NUR ---
SEEN AND EXAMINED BY DR. HYMAN WITH NEW ORDERS. NEW ORDERS NOTED AND CARRIED OUT. WILL CONTINUE TO MONITOR.
--- NOTE | 2020-03-18 22:59 | NUR ---
INITIATED VASOPRESSIN AT 0.01 U/MIN. BLOOD PRESSURE 76/47(57). WILL CONTINUE TO MONITOR
[2020-03-19] VITALS (17 sets, daily range): BP systolic 11–131; BP diastolic 49–57
--- NOTE | 2020-03-19 02:50 | NUR ---
TURNED OFF VASOPRESSIN. BP 126/43(79). WILL CONTINUE TO MONITOR.
--- NOTE | 2020-03-19 02:50 | NUR ---
INCREASED VERSED TO 3MG/H TO ACHIEVE RSS 4
--- NOTE | 2020-03-19 04:48 | NUR ---
REVENUE AGENT AT BEDSIDE FOR LAB DRAW.
--- NOTE | 2020-03-19 04:49 | NUR ---
DECREASED NEOSYNEPHRINE FROM 175 MCG/MIN TO 150 MCG/MIN. BP 110/64(79). WILL CONTINUE TO MONITOR.
--- NOTE | 2020-03-19 05:30 | NUR ---
PT CLEANED, F/C CARE PROVIDED. GOWN, LINENS, CHUCKS CHANGED. NO BM AT THIS TIME. BED PLACED IN LOW POSITION, CALL LIGHT WITHIN REACH.
[2020-03-19 05:55] LABS: PLATELET COUNT 153 x10^3mcL (130-400)
[2020-03-19 05:57] LABS: CALCIUM 7.7 mg/dL (8.5-10.1); CARBON DIOXIDE 11.5 mmol/L (21-32); CREATININE SERUM 2.9 mg/dL (0.7-1.3); POTASSIUM SERUM 5.3 mmol/L (3.5-5.1)
[2020-03-19 05:58] LABS: RED CELL DISTRIBUTION WIDTH 18.2 % (11.5-14.5)
--- NOTE | 2020-03-19 06:05 | NUR ---
RADIOLOGY AT BEDSIDE FOR CHEST XRAY
[2020-03-19 06:33] LABS: BAND NEUTROPHIL 16 % (0-10); MONOCYTE 4 % (0-7); SEGMENTED NEUTROPHILS 75 % (37-75)
[2020-03-19 06:34] LABS: rbc morphology (normal/abnorm) NORMAL (NORMAL)
--- NOTE | 2020-03-19 06:40 | NUR ---
NOTIFIED DR. DEUTSCH REGARDING NA 125 & K 5.3. NO NEW ORDERS AT THIS TIME. DR. DEUTSCH WILL ASSESS PT LATER TODAY.
--- NOTE | 2020-03-19 07:44 | NUR ---
LATE ENTRY. RECEIVED PT ON LEVOPHED AT 26 MCG/MIN, BICARBO 50ML/HR, SEDATED ON VERSED 4MG/HR, FENTANYL 0.5 MCG/KG/HR. PT ON VENT PCV MODE: FIO2 100%, PRESSURE 18, RR 15, PEEP 8. O2 SAT 100%. LAO DRAINING URINE VIA GRAVITY, YELLOW URINE. GUARDS STAYING OUT SIDE OF ROOM. RESTART GRIFFIN SOFT WRIST RESTRAINTS FOR SAFETY PRECAUTION. WILL CONTINUE PT CARE.
--- NOTE | 2020-03-19 09:11 | NUR ---
Initial Nutrition Assessment: Dx: AMS PMHx: AFIB, CAD, HTN, asthma, COPD, GERD, gastritis, bladder CA PSHx: None Labs: (03/19) Na 125 L, K 5.3, Glu 36 H, BUN 2.9 H, H/H 13.4/40 Meds: Ativan, D5%/NaCl 0.9%, Humulin R, lactated ringers, Levophed Lantus, Lipitor, Lovenox, Miralax, Morphine sulfate, Pepcid, Prilosec, Rocephin, Reglan, Sodium bicarb, Sublimaze, TUMS, Tylenol, vancocin, VERSED Diet: CCHO PO intake since admission: Pt is a new admit Ht: 190.5 cm / 75 inches / 6'3" Wt: 113 kg / 249 pounds BMI: 31.1 kg/m2, obesity class 1 IBW: 196 pounds / 89 kg %IBW: 127% AdjBW: 209 pounds / 95 kg UBW: Unknown Age: 64 Food Allergies: No Know Food Allergies Skin: BUE ecchymosis, LUE skin tear, rt elbow skin tear Yonny: 13 Edema: +1 BUE/BLE GI: abd obese, soft, bowel sounds hypoactive, no N/V, no BM at this time. Last BM: Prior to admission. Pt admitted with dx: hypotension, septic shock, pneumonia, hypoxia, resp failure, ANGEL/CKD, a-fib RVR, AMS, metabolic encephalopathy, DM, COPD, bladder CA, r/o COVID-19. RD Note (03/19): Per H&P (03/18), Pt is a 64 y/o male who is a [facility] resident, COVID-19 status unknown at time of H&P. He was found to be altered in his cell with vomit around him. He was taken to the ED. Upon arrival, he was tachy, hypotensive. He was started on pressors. Admitted to ICU. OGT placed on 03/18/20. Pt to start TF feedings. RDN provided TF recommendations to MD and RN, both acknowledged. Problem with: N/V/D/C: None Problems with: Chewing: Not typically; however, Pt vented at this time. Swallowing: Not typically; however, Pt vented at this time. Current appetite: Unable to assess Recent wt change: Unable to obtain Vitamin/Supplement use: Unable to obtain Special diet at home: Unable to obtain Physical activity: Unable to obtain Nutrition education given (specify specific nutrition education and handout given): N/A Food-drug interactions? N/A Education given? N/A Estimated Nutritional Needs Based on adj body weight of 95 kg. For those on ventilator support: Ventilator Settings 14.5 L/min Temperature: 97.3 F / 36.2 C Energy: 2419-8749 kcal/d vs 2340 kca/d (30-35 kcal/kg vs [id number] for vent support) Protein: 114-143 gm/d (1.2-1.5 gm/kg for vent support) Fluid: 8453-8663 mL/d (1 mL/kcal) or per MD. Nutrition Diagnosis 1. Inadequate protein/energy intakes related to Pt unable to ingest diet d/t ventilation as evidenced by Pt meeting < 75% estimated needs. Intervention/RDN Recommendation(s): 1. Recommend D/C CCHO diet due to inappropriate due to Pt ventilated. 2. When medically appropriate per MD, recommend initiating tube feedings via OGT. --- Consider Vital AF 1.2 at 70 mL/hr with FWF 100 mL Q6H (700 mL FWF total), starting at 20 mL/hr, increasing by 10 mL Q4H as tolerated until goal reached. Goal rate will provide a grand total of 1680 mL total volume, 2160 kcal, 135 gm protein, and 2160 mL FWF (includes FWF). TF recommendation was discussed with MD and RN; both acknowledge. Monitor/Evaluate Goal: Intake via nutrition support to meet at least 80% of estimated needs with acceptable tolerance within 2-3 days. Monitor: nutrition support initiation and tolerance, Labs, GI function, Skin integrity, Weights. F/U in 2-3 days as high risk (03/21-)
--- NOTE | 2020-03-19 09:13 | NUR ---
DR. BROWN ASSESSED PT BED SIDE. PT'S STATUS UPDATED. ER DR. BROWN ORDER: - START PT TUBE FEEDING VITAL 1.2 INITIATE AT 10 ML/HR, GOAL 70ML/H, WFW 100ML Q6H. - ADJUST VENT SETTING VCV MODE: RR 20, FIO2 75%, PEEP 5, VT 500. THEN ABG X1. - CHANGE IV FLUID TO NS 75ML/HR. DC D5/NS AND SODIUM BICARBO.
--- NOTE | 2020-03-19 14:22 | NUR ---
DR. JENKINS ASSESSED PT BEDSIDE. PT'S STATUS UPDATED. PER DR. JENKINS, CHANGE PT'S IVF TO SODIUM BICARB AT 100ML/HR.
--- NOTE | 2020-03-19 17:54 | NUR ---
CALLED AND MADE RT ROSEANNE AWARE PER DR. BROWN'S ORDER: ADVANCED ETT 4 CM. CXR ORDERED AFTER ROSEANNE ADAVNCED ETT FROM 22CM LL TO 25CM LL.
--- NOTE | 2020-03-19 18:37 | NUR ---
ASSESSED PT BEDSIDE. PT'S STATUS UPDATED.
--- NOTE | 2020-03-19 19:15 | NUR ---
RECEIVED REPORT FROM ESME VALLE. WILL RESUME CARE.
--- NOTE | 2020-03-19 19:20 | NUR ---
RECEIVED PT INTUBATED AND SEDATED ON VERSED AT 4MG/HR AND FENTANYL AT 5MCG/KG/HR, RSS 5. UNABLE TO FOLLOW COMMANDS. PUPILS 3MM SLUGGISH. 8.0 ETT AT 25CM LL INTACT AND SECURED. OGT INTACT AND SECURED TO ETT. NO REDNESS, DRAINAGE, OR SWELLING NOTED TO EENT. ON VENT VCV-A/C WITH SETTINGS OF VT 500, R 20, PEEP 5. BREATHING E/U. LUNG SOUNDS DIMINISHED BILATERALLY. VAP CARE PROVIDED. S1S2 AUSCULTATED. NO S/SX OF CHEST PAIN. CAP REFILL <3 SEC. PULSES PALPABLE. TRACE EDEMA TO BUE'S AND BLE'S. GENERALIZEWD WEAKNESS. BILATERAL SOFT WRIST RESTRAINTS IN PLACE FOR PT'S SAFETY. CUFFS TO BLE'S, CIM PT. ABDOMEN OBESE, NONTENDER. BS ACTIVE X 4. NO BM AT THIS TIME. LAO CATHETER IN PLACE DRAINING VIA GRAVITY YELLOW URINE. ECCHYMOSIS AND SKIN TEARS TO BUE'S. BED IN LOW POSITION. CALL LIGHT WITHIN REACH.
--- NOTE | 2020-03-19 21:10 | NUR ---
URINE COLLECTED AND SENT TO LAB FOR SODIUM AND CREATININE URINE LEVELS.
--- NOTE | 2020-03-19 22:02 | NUR ---
LEVOPHED DECREASED TO 28MCG/MIN. B/P 122/59. MAP 80.
[2020-03-20] VITALS (17 sets, daily range): BP systolic 87–123; BP diastolic 52–69; Ht 190.5 cm; Wt 113.9 kg
--- NOTE | 2020-03-20 00:01 | NUR ---
LEVOPHED DECREASED TO 26MCG/MIN. B/P 123/54. MAP 74.
--- NOTE | 2020-03-20 00:29 | NUR ---
DR. HYMAN AT BEDSIDE ASSESSING PT. UPDATES PROVIDED. NO NEW ORDERS AT THIS TIME.
--- NOTE | 2020-03-20 04:34 | NUR ---
AUTOBODY TECHNICIAN AT BEDSIDE FOR BLOOD DRAW.
--- NOTE | 2020-03-20 04:58 | NUR ---
PT NOTED WITH HR 168 WITH NEW ORDERS FOR EKG. NEW ORDERS NOTED AND CARRIED OUT. WILL CONTINUE TO MONITOR.
--- NOTE | 2020-03-20 05:28 | NUR ---
DR YATES PAGED FOR A.FIB, HR 166 AWAITING CALL BACK. WILL CONTINUE TO MONITOR.
[2020-03-20 05:33] LABS: ALBUMIN 1.6 g/dL (3.4-5.0); BILIRUBIN TOTAL 0.66 mg/dL (0.20-1.00); CALCIUM 7.6 mg/dL (8.5-10.1); CARBON DIOXIDE 21.9 mmol/L (21-32); CREATININE SERUM 1.8 mg/dL (0.7-1.3); PHOSPHOROUS 3.5 mg/dL (2.5-4.9); POTASSIUM SERUM 4.4 mmol/L (3.5-5.1); TOTAL PROTEIN, SERUM 4.5 g/dL (6.4-8.2)
[2020-03-20 05:47] LABS: BASOPHIL % 0.5 % (0-2)
[2020-03-20 05:56] LABS: PLATELET COUNT 88 x10^3mcL (130-400)
--- NOTE | 2020-03-20 06:39 | NUR ---
DR. YATES PAGED X2, WITH NEW ORDERS. NEW ORDERS FOR DIGOXIN 0.25MG IVP X1 NOTED AND CARRIED OUT. WILL CONTINUE TO MONITOR.
--- NOTE | 2020-03-20 08:14 | NUR ---
PATIENT HR REMAINS IN 160S AFTER DIGOXIN ADMINISTERED AT 0720, DR YATES PAGED AT THIS TIME.
--- NOTE | 2020-03-20 08:25 | NUR ---
DR YATES NOTIFIED, NEW ORDER FOR AMIODARONE DRIP, WILL CARRY OUT ORDERS.
--- NOTE | 2020-03-20 08:41 | NUR ---
DR CASTANEDA AT BEDSIDE FENTANYL TITRATED TO 1.5 MCG/KG/HR AT THIS TIME FOR RESPIRATIONS IN THE 30S. WILL MONITOR FOR PATIENT RESPONSE.
--- NOTE | 2020-03-20 10:10 | NUR ---
AMIODARONE DRIP STARTED AT 1MG/MIN AT THIS TIME, PATIENT HR 162, WILL MONITOR FOR PATIENT RESONSE.
--- NOTE | 2020-03-20 19:15 | NUR ---
RECEIVED REPORT FROM LEONARD STEVENS. WILL RESUME CARE.
--- NOTE | 2020-03-20 19:20 | NUR ---
RECEIVED PT. PT INTUBATED & SEDATED ON FENTANYL 1.5 MCG/KG/H & VERSED 2 MG/H. RSS=5. 8.0 ETT 25CM@LL INTACT & SECURE. OGT INTACT & SECURE. NO DRAINAGE, REDNESS, SWELLING NOTED TO ETT. PT CONNECTED TO HEART MONITOR. HEART RHYTHM IS A.FIB. PT ON AMIODARONE 0.5MG/MIN. S1S2 AUSCULTATED. NO S/SX OF CHEST PAIN AT THIS TIME. PT ON VENT VCV/AC MODE WITH SETTINGS FIO2 30%, RATE 20, VT 500, PEEP 5. PT BREATHING E/U. LUNG SOUNDS DIMINISHED BLL. PULSES MODERATE X4, CAP REFILL < 3 SEC. SKIN IS COOL TO TOUCH. +1 EDEMA BUE/BLE. R ELBOW & LUE SKIN TEAR, BUE ECCHYMOSIS NOTED. VITAL 1.2 INFUSING @40ML/HR WITH 100ML FWF Q6H. 80CC GASTRIC RESIDUAL NOTED. F/C INTACT DRAINING VIA GRAVITY YELLOW URINE.
--- NOTE | 2020-03-20 19:34 | NUR ---
REPORT GIVEN TO SJ VALLE. ALL QUESTIONS ANSWERED.
[2020-03-21] VITALS (17 sets, daily range): BP systolic 92–123; BP diastolic 57–69
--- NOTE | 2020-03-21 00:45 | NUR ---
DR. HYMAN AT BEDSIDE. PT UPDATES PROVIDED.
--- NOTE | 2020-03-21 01:05 | NUR ---
CHANGED R DESMOND CATH DRESSING USING STERILE TECHNIQUE. DRESSING CDI.
--- NOTE | 2020-03-21 01:11 | NUR ---
FENTANYL TITRATED TO 1MCG/KG/H TO ACHIEVE RSS 5
--- NOTE | 2020-03-21 05:00 | NUR ---
STICKER OPERATOR AT BEDSIDE
[2020-03-21 06:18] LABS: BASOPHIL % 0 % (0-2); PLATELET COUNT 69 x10^3mcL (130-400); RED CELL DISTRIBUTION WIDTH 18.9 % (11.5-14.5)
[2020-03-21 06:27] LABS: CALCIUM 8.1 mg/dL (8.5-10.1); CARBON DIOXIDE 25.6 mmol/L (21-32); CREATININE SERUM 1.9 mg/dL (0.7-1.3); POTASSIUM SERUM 3.6 mmol/L (3.5-5.1)
--- NOTE | 2020-03-21 10:18 | NUR ---
DR CASTANEDA AT BEDSIDE. ALL UPDATED PROVIDED. PER DR CASTANEDA LOWER SEDATION. FENTANYL TITRATED DOWN TO 0.5 MCG/KG/HR AND VERSED 1 MG/HR.
--- NOTE | 2020-03-21 11:37 | NUR ---
VANCO TROUGH: 15.0 PER PHARMACIST THOMAS MONTALVO TO GIVE. WILL CONTINUE TO MONITOR.
--- NOTE | 2020-03-21 14:20 | NUR ---
DR YATES AT BEDSIDE ALL UPDATES GIVEN. NO NEW ORDERS AT THIS TIME.
--- NOTE | 2020-03-21 15:29 | NUR ---
RC'D CALL FROM [facility], PT COVID-19 NEGATIVE. WILL ENDORSE TO PRIMARY RN AND MD [place]
--- NOTE | 2020-03-21 17:49 | NUR ---
PATIENT HAD LOOSE DARK GREEN FAIR AMOUNT OF STOOL. PATIENT CLEANSED AT THIS TIME. ALL LINENS AND CHUCKS CHANGED. PATIENT LINES: R FEMORAL AND R DESMOND CATH REMAIN INTACT AND SECURED.RAC REMAINS INTACT AND SECURED. PATIENT STABLE WITH HEELS AND BUE OFFLOADED WITH PILLOWS. PATIENT STABLE WILL CONTINUE TO MONITOR AND ENDORSE REPORT TO ONCOMING RN.
--- NOTE | 2020-03-21 19:12 | NUR ---
REPORT GIVEN TO LEONARD CLAUDIO ALL QUESTIONS ANSWERED.
[2020-03-22] VITALS (19 sets, daily range): BP systolic 102–137; BP diastolic 60–75
[2020-03-22 05:07] LABS: BILIRUBIN TOTAL 0.52 mg/dL (0.20-1.00); CALCIUM 8.2 mg/dL (8.5-10.1); CARBON DIOXIDE 29.6 mmol/L (21-32); MAGNESIUM 2.5 mg/dL (1.8-2.4); PHOSPHOROUS 2.4 mg/dL (2.5-4.9)
[2020-03-22 05:09] LABS: ALBUMIN 1.4 g/dL (3.4-5.0); TOTAL PROTEIN, SERUM 4.9 g/dL (6.4-8.2)
[2020-03-22 05:21] LABS: BASOPHIL % 0.1 % (0-2)
[2020-03-22 05:38] LABS: PLATELET COUNT 71 x10^3mcL (130-400); RED CELL DISTRIBUTION WIDTH 18.2 % (11.5-14.5)
--- NOTE | 2020-03-22 07:01 | NUR ---
RECIEVED A CALL FROM LAB INDICATING THAT BUN IS 62. CALLED DR[address] DEUTSCH TO REPORT THE BUN OF 62 AND K OF 3.0. CALLED AT 0545 AND NO ORDERS RECIEVED. AWARE.
--- NOTE | 2020-03-22 07:43 | NUR ---
REPORT TAKEN FROM BEER COOLER NURSE AT THE NURSES STATION WITH THE PATIENT IN VIEW. PATIENT FOUND TO BE VENTED AND SEDATED ON VERSED 1MG, FENTANYL .5 MCG, AND AMIODARONE 0.5. PER REPORT, 8.0ETT AT 25 LL, VT 500, FI02 30, PEEP 5, RATE 20. OGT RUNNING VITAL AF 1.2 AT 40ML PER HOUR. WILL CONTINUE TO MONITOR, AND ASSESS
--- NOTE | 2020-03-22 11:52 | NUR ---
ATTEMPTED TO CALL [facility] [place] LICENSED PLUMBER IN REGARDS TO PT HAVING PREVIOUS COVID TESTS, PER DR CASTANEDA REQUEST. NO ANSWER AT THIS TIME. WILL REATTEMPT AT A LATER TIME
--- NOTE | 2020-03-22 12:18 | NUR ---
SEDATION STOPPED AT THIS TIME TO ALLOW RT TO ATTEMPT WEANING MEASURES.
--- NOTE | 2020-03-22 14:57 | NUR ---
CRYSTAL CARE PROVIDED. LATE ENTRY: 1347 PATIENT PUT BACK TO AC MODE, ON CPAP 12 AT 0847, THEN CPAP AT 10/5 AT 0915.
--- NOTE | 2020-03-22 15:52 | NUR ---
ELO'D DIETARY RECOMMENDATION FROM [facility]. FREE WATER FLUSH 50ML Q6H. PER KRYSTAL, TALKED TO DR DEUTSCH FOR APPROVAL. ORDERS TO BE CARRIED OUT AT THIS TIME
--- NOTE | 2020-03-22 16:00 | NUR ---
Follow-up Nutrition Assessment: ICU4 KIMO ROLLE 64M HR Dx: AMS PMHx: AFIB, CAD, HTN, asthma, COPD, GERD, gastritis, bladder CA Labs: (03/22) K 3L, glucose 278H, BUN 62H, Cr 2H, Phos 2.4L, Alk ph 127H, Mg 2.5H, Lactic acid 5.7H, H/H 10.8/33L Meds: Alphagan, Cordarone, Ditropan, Dopamine, Flomax, Humulin, Lantus, Lovephed, Lipitor, Lyrica, Miralax, Edgar-synerphrine, Ms Contin, Pepcid, Prilosec, singulair, sodium bicarbonate, Solu-cortef, Sublimaze, Trusopt, Tums, Vancocin, Vancomycin, vasostrict, Versed, vitamin B-12, Vitamin D, Xalatan, Zosyn PRN meds: Ambien, Ativan, Colace, D50%, Morphine, Crowell, Phenergan, Tylenol, Zofran Diet: Vital 1.2 at 70ml/hr fwf 100ml Q6H via OGT TF infused: (03/22)1300ml, (03/21)880ml, (03/20)255ml Weights: (03/22) 121kg/266lbs, (03/20)118kg, (03/19)113kg/249lbs Edema: 2+ edema to left lower extremity, 3+ edema to right lower extremity, and 1+ edema to BUE per RN. Last BM: 03/22 per RN Skin: skin tears bilateral extremities Yonny: 11 I/Os: (03/22) 4223/2400ml = 1823ml, (03/21) 3983/2200ml = 1783ml, (03/20) 4125ml/5080ml = -955ml Per last RD note (03/19), RD Note (03/19): Per H&P (03/18), Pt is a 64 y/o male who is a [facility] resident, COVID-19 status unknown at time of H&P. He was found to be altered in his cell with vomit around him. He was taken to the ED. Upon arrival, he was tachy, hypotensive. He was started on pressors. Admitted to ICU. OGT placed on 03/18/20. Pt to start TF feedings. RDN provided TF recommendations to MD and RN, both acknowledged. RD Note (03/22): Pt was seen lying in bed, on ventilator with no signs of distress during visit. Per pt's primary RN, pt had watery stool today, and [id number]. Additionally, RN also mentioned that pt's abdomen was round and semi-firm but no signs of distention. Pt's tube feeding was infusing at goal 70ml/hr per RN. Estimated Nutritional Needs Based on adjusted body weight of 95 kg. For those on ventilator support: Ventilator Settings 14.4 L/min Temperature: 36.8 C Energy: 0458-7000 kcal/d vs 2442 kca/d (25-30 kcal/kg vs [id number] for vent support) Protein: 114-143 gm/d (1.2-1.5 gm/kg for vent support) Fluid: 9785-7467 mL/d (1 mL/kcal) or per MD. Nutrition Diagnosis: (resolved) 1. Inadequate protein/energy intakes related to Pt unable to ingest diet d/t ventilation as evidenced by Pt meeting < 75% estimated needs. Intervention: 1. Recommend continue vital AF 1.2 at 70 mL/hr. Goal rate will provide a grand total of 1680 mL total volume, 2016 kcal, 135 gm protein, and 1362 mL FWF. 2. Recommend free water flush 50ml Q6H d/t pt currently receiving IVF 1000ml Q11H. Free water flush will provide additional 200ml free water and a grand total of 1562ml free water. 3. RD will keep monitoring for water retention and will adjust water flush/formula if intolerance persist. Recommendation provided to Dr. Menjivar, and Dr. Menjivar acknowledged. Monitor/Evaluate: Goal: Have pt meet at least 75% of estimated needs via nutrition support (met, ongoing) Monitor: Nutrition support tolerance, Labs, GI function, Body weight, I & O F/U in 2-3 days as high risk
--- NOTE | 2020-03-22 19:10 | NUR ---
RECEIVED REPORT FROM KIM VALLE. WILL RESUME CARE.
--- NOTE | 2020-03-22 19:25 | NUR ---
RECEIVED PT. PT RESTING IN BED, NO ACUTE DISTRESS NOTED. PT INTUBATED & SEDATED ON FENTANYL 0.5 MCG/KG/H & VERSED 1MG/H. PT DOES NOT RESPOND TO VERBAL/TACTILE STIMULI. PT ON VENT VCV/AC MODE WITH SETTINGS FIO2 30%, RATE 20, VT 500, PEEP 5. PT BREATHING E/U. LUNG SOUNDS DIMINISHED BLL. WILL CONTINUE TO MONITOR.
--- NOTE | 2020-03-22 19:31 | NUR ---
REPORT GIVEN TO PLYWOOD LAYUP LINE CORE LAYER NURSE, CARE ENDORSED
--- NOTE | 2020-03-22 22:55 | NUR ---
PT HAD LOOSE, MEDIUM ABOUT OF STOOL UPON ASSESSMENT. PT CLEANED, NEW LINENS CHUCKS CHANGED.
[2020-03-23] VITALS (19 sets, daily range): BP systolic 104–153; BP diastolic 65–87
--- NOTE | 2020-03-23 04:08 | NUR ---
PT EXHIBITING INCREASED AGITATION, INCREASED FENTANYL TO 1MCG/KG/H & VERSED TO 2MG/H. WILL CONTINUE TO MONITOR.
--- NOTE | 2020-03-23 04:30 | NUR ---
SHADOWGRAPH SCALE OPERATOR AT BEDSIDE
[2020-03-23 05:18] LABS: BASOPHIL % 0.1 % (0-2); PLATELET COUNT 92 x10^3mcL (130-400); RED CELL DISTRIBUTION WIDTH 18.9 % (11.5-14.5)
[2020-03-23 05:19] LABS: BILIRUBIN TOTAL 0.61 mg/dL (0.20-1.00); CALCIUM 8.1 mg/dL (8.5-10.1); CARBON DIOXIDE 30.9 mmol/L (21-32); CREATININE SERUM 2.4 mg/dL (0.7-1.3); PHOSPHOROUS 3.3 mg/dL (2.5-4.9); POTASSIUM SERUM 3.1 mmol/L (3.5-5.1)
[2020-03-23 05:25] LABS: ALBUMIN 1.5 g/dL (3.4-5.0)
--- NOTE | 2020-03-23 05:30 | NUR ---
PT CLEANED, ALL LINENS/CHUCKS CHANGED. F/C CARE PROVIDED. BED PLACED IN LOW POSITION, CALL LIGHT WITHIN REACH.
--- NOTE | 2020-03-23 06:34 | NUR ---
TELEPHONED DR. DEUTSCH REGARDING K 3.1. ORDERED 40 MEQ LIQUID KCL. ORDER VERIFIED AND CARRIED OUT.
--- NOTE | 2020-03-23 09:30 | NUR ---
PT ATTEMPTING TO REACH FOR ETT PT IS MORE ACTIVE DUE TO SEDATION BEING LOWERED FOR CPAP TRIALS. BILAT SOFT WRIST RESTRAINTS APPLIED. WILL CONT TO MONITOR.
--- NOTE | 2020-03-23 13:55 | NUR ---
Nutrition consult received for alternative tube feeding formula d/t watery stool Recommendation: 1. Recommend jevity 1.2 at 70ml/hr. This will provide a volume of 1680ml, 2016kcal, 93g protein and 1335ml free water. It will meet 85% of estimated kcal needs and 82% of estimated protein needs. 2. Recommend prosource BID for 120kcal and 30g protein. 3. Recommend free water flush 50ml Q6H d/t pt currently receiving IVF 1000ml Q11H. Free water flush will provide additional 200ml free water and a grand total of 1535ml free water. RD will keep monitor nutrition support tolerance, Labs, GI function, Body weight, I & O. F/U
--- NOTE | 2020-03-23 13:58 | NUR ---
PT. ADMITTED WITH LOW MISTY SCALE AT RISK, PT. ADMITTED WITH MULTIPLE SKIN TEARS AND ECCHYMOSIS TO BLE, DRESSING IN PLACE CONTINUE TO FOLLOW PRESSURE ULCER PREVENTION INTERVENTIONS. -CLEANSED MULTIPLE SKIN TEARS LE WITH NS, PAT DRY, APPLY ADAPTIC DRESSING COVER WITH DRY DRESSING WRAP WITH KERLIX ROLLS QD AND PRN IF SOILING -TURN AND REPOSITION PATIENT Q 2H -ASSESS AND MONITOR SKIN CONDITION DURING POSITION CHANGE -OFFLOAD BILATERAL HEELS BY PLACING PILLOWS UNDER CALVES AT ALL TIMES, UNLESS OTHERWISE CONTRAINDICATED -PRESSURE REDISTRIBUTION BY PLACING PILLOWS AND OFFLOADING SACRALCOCCYX -KEEP SKIN CLEAN AND DRY AT ALL TIMES.
--- NOTE | 2020-03-23 14:51 | NUR ---
PT BACK FROM CT SCAN @1440. NO COMPLICATIONS NOTED.
--- NOTE | 2020-03-23 18:44 | NUR ---
LATE ENTRY. 1100 VANCOMYCIN HELD PER PHARMACY INSTRUCTION D/T VANCO TROUGH LEVEL 20.9
--- NOTE | 2020-03-23 19:10 | NUR ---
RECEIVED REPORT FROM DAY SHIFT RN. WILL RESUME CARE.
--- NOTE | 2020-03-23 19:20 | NUR ---
RECEIVED PT. PT INTUBATED & SEDATED ON FENTANYL 0.5 MCG/KG/H & VERSED 0.5 MG/H. PT OPENS EYES SPONTANEOUSLY, BUT DOES NOT TRACK. PT GRIMACES TO PAINFUL STIMULI. PUPILS 3MM SLUGGISH. 8.0 ETT, 25CM @LL INTACT & SECURE. NO DRAINAGE, SWELLING, REDNESS. OGT INTACT & SECURE. PT CONNECTED TO PHOTOGRAPHIC SUPERVISOR. HEART RHYTHM IS A. FIB. S1S2 AUSCULTATED. NO S/SX OF CHEST PAIN AT THIS TIME. PULSES MODERATE BUE, WEAK BLE. CAP REFILL < 3 SEC. +1 EDEMA BUE, +2 EDEMA BLE, SCROTAL EDEMA PRESENT. R FEMORAL WNL, DESMOND CATH R CHEST WNL. JEVITY 1.2 INFUSING @70 ML/HR WITH 50CC FWF Q6H. 80 CC GASTRIC RESIDUAL NOTED. ABDOMEN OBESE, SOFT. BOWEL SOUNDS PRESENT X4Q. NO N/V, CURRENT BM. F/C INTACT DRAINING VIA GRAVITY YELLOW URINE. R ELBOW, LUE SKIN TEAR. BUE ECCHYMOSIS. BILATERAL SOFT WRIST RESTRAINTS IN PLACE, CMS WNL. WILL CONTINUE TO MONITOR.
--- NOTE | 2020-03-23 22:30 | NUR ---
UPON ASSESSMENT, PT LEFT ARM DRESSING SOILED. DRESSING CHANGED & CLEANSED. NEW DRESSING CDI.
--- NOTE | 2020-03-23 22:50 | NUR ---
PT EXHIBITING AGITATION, FACIAL GRIMACING. ADMINISTERED 1MG ATIVAN IVP PRN. WILL CONTINUE TO MONITOR.
[2020-03-24] VITALS (16 sets, daily range): BP systolic 128–153; BP diastolic 70–92
--- NOTE | 2020-03-24 04:45 | NUR ---
RECORDS ADMINISTRATOR AT BEDSIDE FOR BLOOD DRAW
--- NOTE | 2020-03-24 05:19 | NUR ---
PT CLEANED, LOOSE BOWEL MOVEMENT NOTED. LINENS/CHUCKS/GOWN CHANGED. F/C CARE PROVIDED. BED PLACED IN LOW POSITION. CALL LIGHT WITHIN REACH.
[2020-03-24 06:13] LABS: BASOPHIL % 0.1 % (0-2); PLATELET COUNT 140 x10^3mcL (130-400)
[2020-03-24 06:16] LABS: RED CELL DISTRIBUTION WIDTH 19.4 % (11.5-14.5)
[2020-03-24 06:40] LABS: CALCIUM 8.4 mg/dL (8.5-10.1); CARBON DIOXIDE 30.6 mmol/L (21-32); CREATININE SERUM 2.5 mg/dL (0.7-1.3)
--- NOTE | 2020-03-24 06:59 | NUR ---
TELEPHONED DR. DEUTSCH REGARDING NA 150 & K 3.0. DR. DEUTSCH ORDERED 40MEQ GT. ORDER VERIFIED AND CARRIED OUT.
--- NOTE | 2020-03-24 10:06 | NUR ---
DR CASTANEDA AT BEDSIDE. ALL UPDATES PROVIDED. PATIENT TO START CPAP AT THIS TIME, RESPIRATORY THERAPIST AWARE, PER DR CASTANEDA TURN OFF SEDATION AT THIS TIME. SEDATION OFF, PATIENT STABLE AT THIS TIME. WILL CONTINUE TO MONITOR.
--- NOTE | 2020-03-24 12:30 | NUR ---
TUBE FEEDING CHANGED AT THIS TIME, PATIENT REMAINS TOLERATING WELL. WILL CONTINUE TO MONITOR.
--- NOTE | 2020-03-24 13:00 | NUR ---
PATIENT HAD LARGE, LOOSE BROWN BOWEL MOVEMENT. ALL LINENS CHANGED AND PATIENT CLEANSED. WILL CONTINUE TO MONITOR.
--- NOTE | 2020-03-24 18:38 | NUR ---
PATIENT STABLE AT THIS TIME WITH NO S/S OF DISTRESS. PATIENT REMAINS ON CPAP, TOLERATING WELL. PER DR CASTANEDA SHE WOULD LIKE FOR PATIENT TO REMAIN ON CPAP DURING THE NIGHT TOLERATED. PATIENT SEDATION REMAINS OFF. R FEMORAL AND R UPPER CHEST DESMOND CATH REMAINS INTACT AND PATENT. PATIENT REMAINS STABLE AT THIS TIME. WILL CONTINUE TO MONITOR AND ENDORSE REPORT TO ONCOMING RN.
--- NOTE | 2020-03-24 19:09 | NUR ---
REPORT GIVEN TO ONLINE BANKING SPECIALIST, ETHEL ALL QUESTIONS ANSWERED.
--- NOTE | 2020-03-24 19:50 | NUR ---
RECEIVED PATIENT REPORT AT THIS TIME FROM CHARGE NURSE MARY ELLEN TO RESUME CARE.
--- NOTE | 2020-03-24 20:30 | NUR ---
PATIENT IS CURRENTLY ON CPAP WITH O2SAT OF 93% WITH NO RESP DISTRESS NOTED. UNLABORED BREATHING. PATIENT IS NON VERBAL, RESPONDS TO TACTILE STIMULI. PATIENT HAS ETT AND OGT IN PLACE. JEVITY INFUSING VIA OGT AT A RATE OF 70ML/HR PER ORDER (SEE ORDER), PT TOLERATING WELL. BUE EDEMA NOTED, PALPABLE PULSES. GRIFFIN SOFT RESTRAINTS IN PLACE, SKIN/CIRCULATION WNL. PATIENT HAS LFA DRESSING NOTED, CDI. ABD SOFT/DIST, ACTIVE BOWEL SOUNDS. BLE EDEMA NOTED, PALPABLE PULSES. RIGHT FEMORAL ACCESS, DRESSING CDI. RIGH UPPER CHEST PORTACATH, DRESSING CDI. F/C IN PLACE DRAINING VIA GRAVITY, YELLOW COLOR URINE OUTPUT. NO ACUTE DISTRESS NOTED. GUARDS AT BEDSIDE. WILL CONTINUE TO MONITOR.
[2020-03-25] VITALS (17 sets, daily range): BP systolic 101–181; BP diastolic 56–84
--- NOTE | 2020-03-25 01:20 | NUR ---
RT PLACED PATIENT BACK ON AC MODE SETTINGS RATE 20, TIDAL VOL 500, PEEP 5, FIO2 40%. RESUME VERSED AT 2MG/HR AT THIS TIME.
--- NOTE | 2020-03-25 02:38 | NUR ---
VERSED AT 6MG/HR, FENTANYL AT 1MCG/KG/HR DUE TO PATIENT AGITATION AND FAST BREATHING OVER VENTILATOR. RESPIRATIONS 33. WILL MONITOR.
[2020-03-25 06:13] LABS: BASOPHIL % 0.1 % (0-2); PLATELET COUNT 176 x10^3mcL (130-400)
[2020-03-25 06:14] LABS: RED CELL DISTRIBUTION WIDTH 19.6 % (11.5-14.5)
--- NOTE | 2020-03-25 06:34 | NUR ---
PATIENT IN NO ACUTE DISTRESS. PATIENT ON VENT AC MODE WITH SETTING TIDAL VOL 500, RATE 20, FIO2 40%, PEEP 5. PATIENT O2SAT 93% NO SIGNS OF RESP DISTRESS. FENTANYL AT 1MCG/KG/HR, AND VERSED AT 6MG/HR. GRIFFIN SOFT RESTRAINTS IN PLACE FOR SAFETY. ALL PRECAUTIONS IN PLACE. WILL MONITOR.
--- NOTE | 2020-03-25 06:36 | NUR ---
PATIENT TUBE FEEDING PUMP TURNED OFF COMPLETLY AT THIS TIME, SAP BASIS ADMINISTRATOR MADE AWARE WE NEED A NEED A NEW PUMP TO RESUME TUBE FEEDING.
[2020-03-25 06:57] LABS: CALCIUM 8.3 mg/dL (8.5-10.1); CARBON DIOXIDE 34.6 mmol/L (21-32); CREATININE SERUM 2.7 mg/dL (0.7-1.3)
[2020-03-25 07:00] LABS: POTASSIUM SERUM 2.6 mmol/L (3.5-5.1)
--- NOTE | 2020-03-25 07:09 | NUR ---
ENDORSED CARE TO KIMMY VALLE. ALL QUESTIONS/CONCERNS ADDRESSED.
--- NOTE | 2020-03-25 07:26 | NUR ---
SEDATION TURNED OFF AT THIS TIME. PATIENT TO START CPAP, TUBE FEEDING OFF AT THIS TIME FOR POSSIBLE EXTUBATION. PATIENT STABLE AT THIS TIME, WILL CONTINUE TO MONITOR.
--- NOTE | 2020-03-25 11:10 | NUR ---
DR CASTANEDA AT BEDSIDE, ALL UPDATES GIVEN, PER DR CASTANEDA RESUME SEDATION. FENTANYL RESUMED AT 0.5 MCG/KG/HR AND VERSED RESUMED AT 0.5 MG/HR. RSS:5. AMNIODARONE DRIP TO BE INITIATED PER DR CASTANEDA. WILL CONTINUE TO MONITOR.
--- NOTE | 2020-03-25 12:09 | NUR ---
Dx: AMS PMHx: AFIB, CAD, HTN, asthma, COPD, GERD, gastritis, bladder CA Labs: (03/25) Na 157, K 2.6, GLu 167, BUN 82, Cr 2.7, H/H 11.6/36 Meds: Ativan, Colace, D50%, Humulin R, KCl, Lantus, Levophed, Lopressor, Miralqax, Morphine sulfate, Pepcid, Phenergan, Potassium chl, Prilosec, TUMS, Tylenol, vancocin, Versed, Vit B12, Vit D, Zofran, Zosyn Nutrition Support: Jevity 1.2 at 70ml/hr fwf 50ml Q6H via OGT TF infused: (03/25) 700 mL, (03/24) 673 mL, (03/23) 1380 mL Weights: (03/25) 127.5kg/255lbs, (03/24) 123kg/271lbs, (03/23) 123kg/271lbs, (03/22) 121kg/266lbs, (03/20)118kg, (03/19)113kg/249lbs Edema: BUE edema +2, BLE edema +1 Last BM: 03/25 x 1 Skin: BUE ecchymosis, RFA wound covered with dressing CDI Yonny: 14 I/Os: (03/25) 895/2200 (-1305), (03/24) 2239/2902 (-663), (03/23) 3540/3940 (-400) Last RD Note (03/22): Pt was seen lying in bed, on ventilator with no signs of distress during visit. Per pt's primary RN, pt had watery stool today, and [id number]. Additionally, RN also mentioned that pt's abdomen was round and semi-firm but no signs of distention. Pt's tube feeding was infusing at goal 70ml/hr per RN. RD Note (03/25): Pt seen trach to vent, TF Jevity 1.2 hanging and infusing at 70 mL/hr. Per nursing, 0 mL residual. Pt tolerating well. No GI distress. No other nutrition-related issues at this time. Estimated Nutritional Needs Based on adjusted body weight of 95 kg. For those on ventilator support: Re-assessed 03/25/20 Ventilator Settings 12.0 L/min Temperature: 97.8F / 36.5 C Energy: 1822-6459 kcal/d vs 2224 kca/d (25-30 kcal/kg vs [id number] for vent support) Protein: 114-143 gm/d (1.2-1.5 gm/kg for vent support) Fluid: 7419-1618 mL/d (1 mL/kcal) or per MD. Nutrition Diagnosis: (resolved) 1. Inadequate protein/energy intakes related to Pt unable to ingest diet d/t ventilation as evidenced by Pt meeting < 75% estimated needs. Intervention: 1. Continue jevity 1.2 at 70ml/hr. This will provide a volume of 1680ml, 2016kcal, 93g protein and 1335ml free water. It will meet 85% of estimated kcal needs and 82% of estimated protein needs. 2. Continue prosource BID for 120kcal and 30g protein. 3. Continue free water flush 50ml Q6H.Free water flush will provide additional 200ml free water and a grand total of 1535ml free water. Monitor/Evaluate: Goal: Have pt meet at least 75% of estimated needs via nutrition support (met, ongoing) Monitor: Nutrition support tolerance, Labs, GI function, Body weight, I & O F/U in 3.-5 days as moderate risk 03/28-03/30
--- NOTE | 2020-03-25 18:04 | NUR ---
PATIENT REMAINS STABLE AT THIS TIME WITH NO S/S OF DISTRESS. R FEMORAL LINE REMAINS INTACT AND PATENT. RUC DESMOND CATH REMAINS INTACT AND PATENT. EXTREMITIES ARE OFFLOADED WITH PILLOWS. PATIENT STABLE AT THIS TIME, WILL CONTINUE TO MONITOR AND ENDORSE REPORT TO ONCOMING RN.
--- NOTE | 2020-03-25 19:05 | NUR ---
REPORT GIVEN TO LEONARD WILHELM ALL QUESTIONS ANSWERED.
--- NOTE | 2020-03-25 19:20 | NUR ---
RECEIVED REPORT FROM KIMMY VALLE. ASSUMING CARE. ETT ATTACHED TO VENT. BREATHING IS E/U. CONNECTED TO FULL CARTON FOLDER/CONTINOUS PULSE OXIMETRY. HOB ELEVATED 30 DEGREES. BED IN LOW POSITION. CALL LIGHT IN REACH. SEE NURSE SHIFT ASSESSMENT FOR FURTHER DETAIL
[2020-03-26] VITALS (11 sets, daily range): BP systolic 131–159; BP diastolic 62–110
--- NOTE | 2020-03-26 00:10 | NUR ---
DR. HYMAN AT BEDSIDE. UPDATED ON PT'S STATUS. ALL QUESTIONS/CONCERNS ADDRESSED. NO NEW ORDERS RECEIVED
--- NOTE | 2020-03-26 04:15 | NUR ---
PT HAD A LARGE LOOSE BROWN BM. FULL BED BATH PROVIDED. GOWN, CHUCKS, AND LINENS CHANGED. OPTIFOAM REMOVED AND SKIN TEAR NOTED TO SACRAL AREA, PICTURE TAKEN AND PLACED IN CHART, NEW OPTIFOAM PLACED. EXTREMITIES OFFLOADED ON PILLOWS FOR PRESSURE RELIEF. HOB ELEVATED 30 DEGREES
[2020-03-26 05:47] LABS: PLATELET COUNT 160 x10^3mcL (130-400)
[2020-03-26 05:51] LABS: BASOPHIL % 0 % (0-2); RED CELL DISTRIBUTION WIDTH 19.6 % (11.5-14.5)
--- NOTE | 2020-03-26 07:05 | NUR ---
REPORT GIVEN TO KIMMY VALLE FOR CONTINUITY OF CARE. ALL QUESTIONS/CONCERNS ADDRESSED. ENDORSING ALL CARE
--- NOTE | 2020-03-26 07:45 | NUR ---
SEDATION AND TUBE FEEDING OFF AT THIS TIME PER POSSIBLE EXTUBATION. PATIENT STABLE WILL CONITNUE TO MONITOR.
--- NOTE | 2020-03-26 08:32 | NUR ---
RT JOE AT BEDSIDE PLACING PATIENT ON CPAP AT THIS TIME. EDUCATED PATIENT ON IMPORTANCE OF FOCUSING ON BREATHING, PATIENT NODDED NO. WILL REINFORCE EDUCATION AND CONTINUE TO MONITOR.
--- NOTE | 2020-03-26 09:17 | NUR ---
DR CASTANEDA AT BEDSIDE. ALL UPDATES PROVIDED. PER DR CASTANEDA, NEW ORDERS TO CARRY OUT AND ALSO FOLLOW UP CXR AND TELE CONSULT. WILL CARRY OUT ORDERS AND CONTINUE TO MONITOR PATIENT.
[2020-03-26 09:27] LABS: BILIRUBIN TOTAL 0.6 mg/dL (0.20-1.00); CALCIUM 8.1 mg/dL (8.5-10.1); CARBON DIOXIDE 27.1 mmol/L (21-32); PHOSPHOROUS 4.4 mg/dL (2.5-4.9); POTASSIUM SERUM 3.5 mmol/L (3.5-5.1)
[2020-03-26 09:32] LABS: TOTAL PROTEIN, SERUM 5.2 g/dL (6.4-8.2)
--- NOTE | 2020-03-26 10:53 | NUR ---
DR CASTANEDA CALLED AT THIS TIME AND WILL HAVE A CHANGE OF ORDER FOR FWF AND HYDROCORTISON, NA IS 162. WILL CARRY OUT ORDERS AND CONTINUE TO MONITOR.
--- NOTE | 2020-03-26 12:00 | NUR ---
DR DEUTSCH AT BEDSIDE AND MADE AWARE OF NA:162. DR DEUTSCH ALSO MADE AWARE OF EXTUBATION. NO NEW ORDERS AT THIS TIME. WILL CONTINUE TO MONITOR.
--- NOTE | 2020-03-26 12:32 | NUR ---
PATIENT EXTUBATED AT THIS TIME BY RT. OGT/ RESTRAINTS REMOVED AT THIS TIME. PATIENT PLACED ON BIPAP: 14/6 RATE:16, 60% O2. PATIENT STABLE. VITALS: HR:85, B/P: 141/63, O2: 96% RATE: 20. PATIENT BREATHING ADEQUATELY WITH NO DISTRESS. WILL CONTINUE TO MONITOR.
--- NOTE | 2020-03-26 13:02 | NUR ---
CALLED ER AT THIS TIME FOR TELE NEUR. PER ER IT IS BEING USED AND THEY WILL CALL BACK WHEN IT IS AVAILABLE.
--- NOTE | 2020-03-26 13:48 | NUR ---
PATIENT HAD LARGE LOOSE BROWN BOWEL MOVEMENT. PATIENT CLEANSED AT THIS TIME AND ALL LINENS CHANGED. PATIENT STABLE WILL CONTINUE TO MONITOR.
--- NOTE | 2020-03-26 14:19 | NUR ---
TELE CONSULT AT THIS TIME WITH DR MERCEDES. INFORMED DR THAT DR CASTANEDA WOULD LIKE TO SEE IF MEDICATION FOR MYASTHENIA GRAVIS IS OK AND ALL UPDATES ON CX, AND CATSCAN PROVIDED. PER DR MERCEDES, CONTINUE WITH MESTINON 30 MG Q 12. INFORMED THAT PATIENT WAS EXTUBATED TODAY AND NA 162. NO OTHER RECOMMENDATIONS AT THIS TIME. PATIENT STABLE WILL CONTINUE TO MONITOR.
--- NOTE | 2020-03-26 17:58 | NUR ---
PATIENT HAD A LARGE LOOSE BROWN BM. PATIENT CLEANSED AT THIS TIME AND LINENS CHANGED. PATIENT STABLE WILL CONTINUE TO MONITOR.
--- NOTE | 2020-03-26 18:00 | NUR ---
DR YATES AT BEDSIDE ALL UPDATES GIVEN, NO NEW ORDERS AT THIS TIME.
--- NOTE | 2020-03-26 18:23 | NUR ---
PATIENT REMAINS STABLE AT THIS TIME WITH NO S/S OF DISTRESS. EXTREMITIES ARE OFFLOADED WITH PILLOWS. R FEMORAL REMAINS INTACT AND SECURED. R DESMOND CATH REMAINS INTACT AND SECURED. PATIENT STABLE WILL CONTINUE TO MONITOR AND ENDORSE REPORT TO ONCOMING RN.
--- NOTE | 2020-03-26 18:30 | NUR ---
SWALLOW SCREEN DONE AT THIS TIME, PATIENT TOLERATED WELL. WILL CONTINUE TO MONITOR.
--- NOTE | 2020-03-26 19:00 | NUR ---
REPORT GIVEN TO LEONARD WILHELM. ALL QUESTIONS ANSWERED.
--- NOTE | 2020-03-26 19:20 | NUR ---
RECEIVED REPORT FROM KIMMY VALLE. ASSUMING CARE. PT IS ALERT/ORIENTED. BREATHING IS E/U ON BIPAP. PT MEDICATED WITH MORPHINE IVP PER EMAR FOR 8/10 ACHING BACK PAIN. HOB ELEVATED 20 DEGREES. 2 CIM GUARDS AT BEDSIDE. BED IN LOW POSITION. CALL LIGHT IN REACH. WILL CONT TO MONITOR
--- NOTE | 2020-03-26 20:25 | NUR ---
BEDSIDE SWALLOW SCREENED PERFORMED. PT TOLERATED WELL. NO S/S OF DISTRESS NOTED. PT MEDICATED PER EMAR
--- NOTE | 2020-03-26 20:30 | NUR ---
PT REQUESTING TO HAVE BIPAP REMOVED. PT PLACED ON 3 LITERS VIA NC. PT'S SPO2 95%. NO S/S OF RESP DISTRESS NOTED. WILL CONT TO MONITOR
--- NOTE | 2020-03-26 23:15 | NUR ---
PT C/O ACHING ABD PAIN, MEDICATED WITH MORPHINE 2 MG IVP PER EMAR
--- NOTE | 2020-03-27 02:00 | NUR ---
PT IS SLEEPING, EASILY AROUSABLE. NO S/S OF ACUTE DISTRESS NOTED. WILL CONT TO MONITOR
--- NOTE | 2020-03-27 03:00 | NUR ---
AMIODARONE GTT TURNED OFF AT THIS TIME PER DR. TRUDY MORAN
[2020-03-27 03:21] VITALS: BP 134/59
--- NOTE | 2020-03-27 06:00 | NUR ---
REPORT GIVEN TO JAYCEE VALLE FOR CONTINUITY OF CARE. ALL QUESTIONS/CONCERNS ADDRESSED.
[2020-03-27 06:10] LABS: BASOPHIL % 0.1 % (0-2); PLATELET COUNT 186 x10^3mcL (130-400); RED CELL DISTRIBUTION WIDTH 19.2 % (11.5-14.5)
--- NOTE | 2020-03-27 06:20 | NUR ---
RECEIVED PT FROM ICU VIA BED ACCOMPANIED BY RN. PT TRANSFERRED OVER TO BED, TOLERATED WELL. AOX3, EVEN AND SLIGHTLY LABORED RESPIRATIONS ON 3LNC, SATTING 94%, DIMINSHED BLL ON AUSCULTATION. PLACED ON LIVING ADVISOR# [address] 66, HX OF AFIB. RIGHT CHEST PORTACATH IN PLACE, DRESSING CDI. RIGHT FEMORAL C/L IN PLACE, PATENT X2 PORTS, WHITE PORT UNABLE TO FLUSH. BROWN PORT RUNNING IVF PER EMAR. LAO IN PLACE, PATENT DRAINING YELLOW URINE VIA GRAVITY, EDEMA NOTED, ABD SLIGHTLY DISTENDED, BOWEL SOUNDS ACTIVE, BM X1 NOTED, CLEANED PT AND CHANGED GOWN. SKIN TEAR TO SACRAL/COCCYX AREA NOTED, NEW OPTIFOAM APPLIED, CDI. SKIN TEAR TO BUE, DRESSING CDI. ECCHYMOSIS NOTED TO CHUN BALTAZAR. ORIENTED TO ROOM AND SURROUNDINGS. BED IN LOWEST POSITION. SIDE RAILS UPX2. CALL LIGHT WITHIN REACH. WILL ENDORSE TO ONCOMING SHIFT.
--- NOTE | 2020-03-27 06:20 | NUR ---
PT TRANSFERRED AT THIS TIME VIA BED. PT IS ALERT/ORIENTED. BREATHING IS E/U ON 3 LPM VIA NC. VSS. RIGHT FEMORAL CVC TLC INTACT/SECURED, DRESSING CDI. F/C INTACT/SECURED, DRAINING VIA GRAIVTY WITH YELLOW COLORED URINE. NO S/S OF ACUTE DISTRESS NOTED. JAYCEE VALLE TO ASSUME CARE.
[2020-03-27 06:56] LABS: BILIRUBIN TOTAL 1.1 mg/dL (0.20-1.00); CALCIUM 8.2 mg/dL (8.5-10.1); CARBON DIOXIDE 28.4 mmol/L (21-32); CREATININE SERUM 2.7 mg/dL (0.7-1.3); PHOSPHOROUS 4.3 mg/dL (2.5-4.9); POTASSIUM SERUM 3.3 mmol/L (3.5-5.1)
[2020-03-27 06:59] LABS: ALBUMIN 1.9 g/dL (3.4-5.0); TOTAL PROTEIN, SERUM 5.3 g/dL (6.4-8.2)
[2020-03-27 07:48] VITALS: BP 133/62
--- NOTE | 2020-03-27 08:14 | NUR ---
AAO TO PERSON AND PLACE. TELE # 16 SB. LUNGS DIMINISHED BILATERALLY. O2 SAT ON 3L NC 93%. BS'S ACTIVE TIMES 4. NPO WAITING FOR SWALLOW EVAL. GENERALIZED EDEMA BUE, AND BLE +2 AND ALSO HE HAS SCROTAL EDEMA. IV SITE TO RIGHT FEMORAL CDI. RIGHT DESMOND CATH WITH SALINE LOCK BUT NOT BEING USED. NO C/O PAIN. NO SOB. CIM GUARD AT BEDSIDE.
[2020-03-27 09:26] VITALS: BP 144/47
--- NOTE | 2020-03-27 12:08 | NUR ---
RECEIVED PT FROM LEONARD SMITH. NO SIGNIFICANT CHANGES NOTED. PT REQUESTING FOR WATER BUT SWALLOW EVAL STILL PENDING
--- NOTE | 2020-03-27 12:15 | NUR ---
DR DEUTSCH MADE AWARE OF K+ LEVEL 3.3
[2020-03-27 14:30] VITALS: BP 141/67
[2020-03-27 17:48] VITALS: BP 146/55
--- NOTE | 2020-03-27 18:12 | NUR ---
PT WAS SEEN FOR DYSPHAGIA. PT WAS ABLE TO SAFELY SWALLOW PUREE DIET WITH THIN LIQUID. PT HAD DIFFICULTY WITH MASTICATION SKILLS. RECOMMENDATION PUREE DIET WITH THIN LIQUID SMAL BITES AND SIP ONLY.
[2020-03-27 20:40] VITALS: BP 123/55
--- NOTE | 2020-03-27 20:49 | NUR ---
PT. AWAKE, ALERT, SITTING UP IN BED. ORIENTED TO SELF AND PLACE. SPEECH CLEAR BUT SLOW. DENIES HEADACHE OR DIZZINESS. ABLE TO FOLLOW MOST COMMANDS. PT. WITH GENERALIZED WEAKNESS. MORE WEAKNESS NOTED TO BLE. PEDAL PULSES WEAK GRIFFIN. PITTING EDEMA TO BLE, +2-3, BUE +1-2 EDEMA. BLE ELEVATED ON PILLOWS. BUE W/ SKIN TEARS, SITE WITH DRSG CDI. DRSG CHANGE TO RT. FEMORAL CENTRAL LINE. TRIPLE LUMEN, INTACT, PATENT. RT. CHESTWALL DESMOND CATH NOTED WITH DRSG CDI. NOT BEING USED PRESENTLY. ABD. SOFT AND ROUND, OBESE, BOWEL SOUNDS ACTIVE. DENIES NAUSEA. C/O SOME ABD. CRAMPING. PT. HAVING LOOSE STOOL. F/C DRAINING WELL TO GRAVITY. KEVIN GUARDS AT BEDSIDE. HOB ELEVATED 30 DEGREES, CALL LIGHT PLACED WITHIN REACH.
--- NOTE | 2020-03-27 22:54 | NUR ---
PT. HAD VERY LARGE LOOSE STOOL. BED BATH AND REPOSITIONINING DONE, PT. MADE COMFORTABLE. TRIPLE LUMEN CENTRAL LINE REMAIN IN-SITU. HOB 35 DEGREES. BLE ELEVATED. KEVIN GUARDS AT BEDSIDE. CALL LIGHT PLACED WITHIN REACH.
--- NOTE | 2020-03-28 02:37 | NUR ---
PT. DOZING INTERMITTENTLY. NO RESP. DISTRESS NOTED THUS FAR. IVF INFUSING WELL, SITE REMAINS INTACT. KEVIN GUARDS AT BEDSIDE. CALL LIGHT WITHIN REACH.
[2020-03-28 05:25] VITALS: BP 132/60
--- NOTE | 2020-03-28 06:14 | NUR ---
PT. AWAKE. NO RESP. DISTRESS NOTED THROUGHOUT THE NIGHT. PT. REMAINS ON 3L/NC. TRIPLE LUMEN CENTRAL LINE INTACT. WHITE PORT NOT FLUSHING, BROWN AND BLUE PORT FLUSHING WELL, NO BLOOD RETURN NOTED FROM EITHER ONE. IVF CONTINUES AT 75CC/HR. F/C DRAINING WELL TO GRAVITY. KEVIN GUARDS AT BEDSIDE. CALL LIGHT WITHIN REACH. WILL ENDORSE PT CARE TO INCOMING NURSE.
--- NOTE | 2020-03-28 07:00 | NUR ---
RECEIVED PT FROM NIGHT RN. PT RESTING IN BED, EASILY AROUSABLE. AAOX3, SPEECH CLEAR. DENIES HU/DIZZINESS. RES E/U, NO RESPIRATORY DISTRESS NOTED. DENIES SOB ON 3L NC. TELE MONITOR 16 SHOWING SR, DENIES CP/PRESSURE. PERIPHERAL PULSES WEAK. 2+ PITTING EDEMA TO BLE, +1 PITTING EDEMA BUE. BLE ELEVATED WITH PILLOW. ABDOMEN SOFT. LAO CATHETER DRAINING TO GRAVITY W YELLOW URINE NOTED. SKIN TEAR TO BUE. REDNESS TO COCCYX W OPTIFOAM NOTED. R DESMOND CATH CDI. IV SITE TO R FEMORAL INFUSING D5 AT 75 ML/HR. WHITE PORT NOT FLUSHING, NO BLOOD RETURN FOR BLUE AND BROWN PORT PER REPORT. CIM GUARDS AT BEDSIDE. BED IN LOWEST POSITION, CALL LIGHT WITHIN REACH.
--- NOTE | 2020-03-28 07:05 | NUR ---
PT. THROWING UP AFTER HAVING A CUP OF WATER. STILL FEELING NAUSEA. DR. DEUTSCH MADE AWARE OF PO ZOFRAN. RECEIVED ORDERS FOR IV ZOFRAN AND D/C PO ZOFRAN. WILL ENDORSE TO INCOMING NURSE.
[2020-03-28 09:04] VITALS: BP 136/56
[2020-03-28 11:24] LABS: PLATELET COUNT 218 x10^3mcL (130-400)
[2020-03-28 11:35] LABS: CALCIUM 9.1 mg/dL (8.5-10.1); CARBON DIOXIDE 27.7 mmol/L (21-32); CREATININE SERUM 2.6 mg/dL (0.7-1.3); POTASSIUM SERUM 3.5 mmol/L (3.5-5.1); RED CELL DISTRIBUTION WIDTH 18.5 % (11.5-14.5)
--- NOTE | 2020-03-28 13:00 | NUR ---
SPOKE WITH DR DEUTSCH REGARDING D5 AND PATIENT'S BS HAS BEEN IN THE 200'S. NO CHANGE IN ORDER. PER DR DEUTSCH, PT IS ON LANTUS, HUMULIN N, AND SLIDING SCALE.
[2020-03-28 13:44] VITALS: BP 153/93
[2020-03-28 17:33] VITALS: BP 155/63
--- NOTE | 2020-03-28 18:00 | NUR ---
PT HAD LARGE BOWEL MOVEMENT. NOTED LOOSE, GREEN STOOL. PT WAS CLEANED, CHANGED, AND REPOSITIONED. Z GUARD WAS APPLIED TO GROIN. NEW DRESSING TO R FEMORAL APPLIED. LEGS ELEVATED W PILLOW.
--- NOTE | 2020-03-28 19:41 | NUR ---
PT RESTING IN BED NO SIGNIFICANT CHANGES NOTED. WILL ENDORSE CARE TO NEXT SHIFT
[2020-03-28 21:26] VITALS: BP 161/68
[2020-03-29 06:02] VITALS: BP 160/68
[2020-03-29 06:55] LABS: PLATELET COUNT 224 x10^3mcL (130-400)
[2020-03-29 06:57] LABS: CALCIUM 8.1 mg/dL (8.5-10.1); CARBON DIOXIDE 23.8 mmol/L (21-32); CREATININE SERUM 2.3 mg/dL (0.7-1.3); POTASSIUM SERUM 3.3 mmol/L (3.5-5.1)
[2020-03-29 07:34] LABS: BASOPHIL % 0 % (0-2); RED CELL DISTRIBUTION WIDTH 18.6 % (11.5-14.5)
--- NOTE | 2020-03-29 07:55 | NUR ---
RECEIVED PATIENT FROM LEONARD MOCK. PATIENT IN BED AT THIS TIME, EATING AND TOLERATED BREAKFAST TRAY. PATIENT STATES HE HAS TROUBLE BREATHING BUT NO S/S OF SOB. ON 4 LPM O2 NASAL CANNULA. SPOKE WITH PATIENT ABOUT PLAN OF CARE TODAY INCLUDING SEVERAL MEDICATIONS. PATIENT AGREES, WILL WAIT FOR DR DEUTSCH TO ARRIVE AND SEE PATIENT. [facility] OFFICERS AT BEDSIDE. CALL LIGHT IN REACH.
--- NOTE | 2020-03-29 08:08 | NUR ---
@ 1999 A/O X3. X2 OFFICERS @ THE BS. PT DENIES ANY DISCOMFORT @ THIS TIME. DENIES SOB.DENIES CP.HAS 3+ PITTING EDEMA ON HIS BILATERAL UPPER & LOWER EXTREMITIES.NOTED HAS LEFT FOOT SHACKLE ON.LAO CATH DRAINING WITH CLEAR YELLOW URINE.INSTRUCTED TO USE CALL LIGHT NEEDED;WITHIN REACH.IVF D5W @ 75 ML/HR INFUSING WELL.AFEBRILE.BP 161/68 MM HG.DC 56.
--- NOTE | 2020-03-29 08:15 | NUR ---
@ 2100 FINGER STICK BLD SUGAR 234. DUE MED ADM. PT IS TOTAL CARE.
--- NOTE | 2020-03-29 08:16 | NUR ---
@ 2300 DR. DEUTSCH WAS CALLED IF PT NEED TO HAVE THE SLIDING SCALE REGULAR ON TOP OF NPH & LANTUS.MADE AWARE THAT CARDORONE &LOPRESSOR WAS HELD BECAUSE OF LOW MI." STATED OK TO HOLD CARDORONE & LOPRESSOR & TO GIVE THE SLIDING REGULAR INSULIN.
--- NOTE | 2020-03-29 08:20 | NUR ---
@ 0400 ASLEEP IN NO ACUTE DISTRESS.
--- NOTE | 2020-03-29 08:20 | NUR ---
@0100 STILL AWAKE IN NO ACUTE DISTRESS. IVF INFUSING WELL.
--- NOTE | 2020-03-29 08:21 | NUR ---
@ 0690 ENDORSED IN NO ACUTE DISTRESS.IVF INFUSING WELL.NO S/S OF HYPO/ HPERGLYCEMIA NOTED.SAFETY MAINTAINED.X2 OFFICERS @ THE BS.
[2020-03-29 09:20] VITALS: BP 148/68
[2020-03-29 12:09] VITALS: BP 149/59
--- NOTE | 2020-03-29 15:32 | NUR ---
PATIENT STATING THAT HE IS HAVING TROUBLE BREATHING. PATIENT CONTINUES ON 4LPM NASAL CANNULA WITH O2 SATS OF 95%. PATIENT COLOR IS PINK, WARM, DRY. CONTACTED RT, BUT NO ANSWER.
--- NOTE | 2020-03-29 15:48 | NUR ---
RT LIZANDRO NOTIFIED, ASKED IF PATIENT WILLING TO DO BIPAP, PATIENT AGREEABLE TO BIPAP. WILL WAIT FOR RT BONE TO ARRIVE TO PLACE PATIENT ON BIPAP.
[2020-03-29 16:53] VITALS: BP 155/68
--- NOTE | 2020-03-29 17:53 | NUR ---
PATIENT IN BED, STATES THAT HE WANTS TO SIGN HIMSELF OUT AMA. EXPLAINED TO PATIENT THAT THERE MAY NOT BE A BED FOR HIM IN THE [facility], AND IF THEY DID, THEN THEY WOULD NOT LIKELY BE ABLE TO PROVIDE OXYGEN FOR HIM PATIENT IS CURRENTLY ON 4 LPM NASAL CANNULA. PATIENT ANGRY AND STATES "I KNOW MY RIGHTS" AND STILL WANTS TO SIGN OUT. INFORMED CHARGE NURSE ERICA AND DIALED DR DEUTSCH TO MAKE AWARE. DR DEUTSCH STATES HE CAN SIGN OUT. AMA PRINTED AND WILL HAVE PATIENT SIGN OUT, WILL SPEAK WITH [facility] OFFICERS ABOUT TRANSPORT.
--- NOTE | 2020-03-29 18:09 | NUR ---
PATIENT HAS SIGNED OUT AMA, SIGNATURE OBTAINED. TALKED TO SHEET METAL INSULATOR ABOUT TRANSPORT AND SERGEANT MADE AWARE, ALSO MADE AWARE THAT [facility] LIKELY REQUIRED. WILL WAIT FOR UPDATE FROM [facility] OFFIC[facility] ABOUT TRANSPORT. IV, NASAL CANNULA, AND LAO CATHETER INTACT AT THIS TIME. WILL ENDORSE TO ONCOMING NURSE.
--- NOTE | 2020-03-29 19:35 | NUR ---
RECEIVED PT FROM AM NURSE, PT AAOX4, ABLE TO FOLLOW COMMANDS AND MAKE NEEDS KNOWN. [id number], DENIES CP/PRESSURE AT THIS TIME. PALPABLE PULSES TO ALL EXTREMETIES. EDEMA TO BLE AND BUE NOTED. DIMINISHED LUNG SOUNDS, BREATHING EVEN AND UNLABORED ON 4L NC. PT C/O SOB ON EXERTION. DENIES ANY COUGH AT THIS TIME. ABD SOFT AND NONDISTENDED, ACTIVE BS X4 QUAD. PT INCONTINET TO BOWEL AND BLADDER. GENERALIZED WEAKESS, BEDFAST AT THIS TIME. PT ABLE TO REPOSITION SELF. SKIN TEAR TO BUE NOTED. REDNESS TO COCCYX. PORT-A CATH TO CHEST. CENTRAL LINE TRIPLE LUMEN TO RIGH FEMERAL. PATENT AND INTACT. NO ACUTE DISTRESS NOTED. BED AT LOWEST SETTING. SIDE RAILS X2 UP. CALL LIGHT WIHTING REACH. WILL CONT TO MONITOR.
[2020-03-29 21:08] VITALS: BP 153/67
--- NOTE | 2020-03-29 21:48 | NUR ---
PT REFUSED ALL MEDS INCLUDING IV FLUIDS AND IV ANTIBIOTICS. PT HAS SIGNED HIMSELF AMA THIS EVENING. PER GUARDS PT WILL BE GOING BACK TO [facility] BUT THEY DO NOT KNOW IF IT WILL HAPPEND TODAY OR TOMORROW SINCE PT WILL NEED [facility] FOR TRANSFER. PER GUARDS THEY ARE WAITING FOR ORDER FROM THEIR [facility] AT THIS TIME. CALLED DR DEUTSCH, UPTADATED DR ABOUT PT GOING BACK TO [facility] AND ALSO PT REFUSING ALL MEDS AND CARE. PER DR DEUTSCH OKAY AND JUST WAIT FOR PT TO BE TRANSFERED. NO ORDERS RECEIVED. WILL CONT TO MONITOR.
[2020-03-30 03:50] VITALS: BP 152/62
--- NOTE | 2020-03-30 05:31 | NUR ---
PT CONT TO REFUSED CARE MEDICATIONS AND BLOOD SUGAR CHECKS. PT STATING THAT HE WANTS TO LEAVE, PER GUARDS THEY HAVE NOT HEARD ANYTHING FROM SERGEANT ABOUT BED AVAILABILITY. PT STATING THAT HE WANTS TO LEAVE BECAUSE HE ALREADY SIGNED AMA YESTERDAY, INFORMED PT THAT IT IS OUT OF OUR CONTROL WHEN HE WILL BE TRANSFERED BACK [facility]. PT STILL UPSENT AND DEMANDS NURSE TO TALK TO SERGEANT. INFORMED CHARGE NURSE AND HOUSE SUP, AND THEY STATE THAT WE WILL HAVE TO WAIT FOR THE SERGEANT TO ARRANGE TRANSFER.
--- NOTE | 2020-03-30 06:08 | NUR ---
CALLED [facility] AND TALKED TO RN SANDRA,INFORMED THAT PT SIGNED AMA AND SHE STATED PT CAN GO BACK IN [facility] BUT THEIR MEDICAL MD SHOULD BE NOTIFIED AND ALSO THEY HAVE TO ARRANGE TRANSPORTATIONA ND VISUAL ASSOCIATE FOR THE PATIENT,PT INFORMED RE-CONVERSATION WITH THE RN IN [facility] AND HE SAID 'RORY" HE CAN WAIT.
--- NOTE | 2020-03-30 06:51 | NUR ---
CHARGE NURSE HAS TALKED TO PT, PT AGREES TO WAIT UNTIL THEY ARRAGE TRANSPORTATION. PT REFUSED ALL NURSING CARE AND BLOOD DRAWN. SAFETY PRECAUTIONS IN PLACE. GUARDS AT BEDSIDE. CALL LIGHT WITHING REACH. WILL CONT TO MONITOR AND ENDORSE CARE TO AM NURSE.
--- NOTE | 2020-03-30 07:30 | NUR ---
PT IS COMPLIAINING THAT HE WANTS TO RETURN TO [facility] AND GO AMA. EXPLAINED RISK AND BENEFITS. PT AGREED HE WILL TAKE MORNING MEDICATION AND AWAIT RESPONSE FOR DR. DEUTSCH. PT IS AAOX4. MED SURG PT. LUNG SOUNDS DIMINSHED BILATERALLY. ON 02 N/C AT 5 LPM. NO COUGH OR SOB NOTED. LAO CATH IN PLACE DRAINING CLEAR YELLOW URINE TO GRAVITY. PT HAS BUE SKIN TEARS AND ECCYMOSIS. REDNESS TO COCCYX AREA. NEW L LOWER BACK FOR SKIN EXCORITION FOUND. PICTURES TAKEN AND PLACED IN CHART. AREA CLEASNED WITH NS AND PLACED OPTIFOAM DRESSING. PT HAS R CHEST DESMOND CATH, SITE WNL. COVRED WITH CDI DRESSSING. PT HAS R FEMORAL CENTRAL LINE 3 PORTS, PATENT. SITE WNL, COVERED WITH CDI DRESSING. PT DENIES PAIN AT THIS TIME. CALL LIGHT SULY REACH. 2 GUARDS AT BEDSIDE ON ONE TO ONE SUPERVISION. FALL PROTOCOL IN PLACE.
[2020-03-30 08:56] VITALS: BP 111/66
--- NOTE | 2020-03-30 10:32 | NUR ---
PYRIDOSTIGMINE PO GIVEN LATE DUE TO PHARMACY BRINGING IT TO MED ROOM LATE. PT TOLERATED ALL MORNING MEDS AND DID NOT REFUSE ANY. CALL LIGHT CORINNE ANDRADE.
--- NOTE | 2020-03-30 13:57 | NUR ---
SCHEDULED MEDS GIVEN AND TOLERATED WELL. PT DENIES PAIN. CALL LIGHT WITHIN REACH. BED IN LOWEST POSTION.
--- NOTE | 2020-03-30 14:43 | NUR ---
WES REED INITIATED. BANKING ANALYST IN ROOM ATTEMPTING TO DRAW MORNING LABS THAT WERE REFUSED EARLIER. PT DENIES PAIN. CALL LIGHT WITHIN REACH.
--- NOTE | 2020-03-30 15:29 | NUR ---
PT TITRATED TO 4LPM. RESP EVEN AND UNLABORED. WILL CONTINUE TO MONITOR.
[2020-03-30 15:36] LABS: PLATELET COUNT 208 x10^3mcL (130-400)
[2020-03-30 15:46] LABS: BASOPHIL % 0 % (0-2); RED CELL DISTRIBUTION WIDTH 18.1 % (11.5-14.5)
[2020-03-30 15:48] LABS: BILIRUBIN TOTAL 0.83 mg/dL (0.20-1.00); CALCIUM 8.8 mg/dL (8.5-10.1); CARBON DIOXIDE 20.8 mmol/L (21-32); CREATININE SERUM 2.1 mg/dL (0.7-1.3)
[2020-03-30 15:58] LABS: POTASSIUM SERUM 2.9 mmol/L (3.5-5.1); TOTAL PROTEIN, SERUM 5.4 g/dL (6.4-8.2)
[2020-03-30 16:01] LABS: CALCIUM 8.9 mg/dL (8.5-10.1); CARBON DIOXIDE 20.3 mmol/L (21-32); CREATININE SERUM 2.1 mg/dL (0.7-1.3)
--- NOTE | 2020-03-30 16:09 | NUR ---
REPORTED TO DR. DEUTSCH THAT PT'S K+= 2.9 AND PT HAS NO LABS ORDERED FOR TOMORROW. RECEIVED ORDER FOR KLOR CON 40MEQ X1 NOW AND CBC, BMP. ORDERS NOTED AND CARRIED OUT.
[2020-03-30 16:12] VITALS: BP 139/70
[2020-03-30 16:25] LABS: POTASSIUM SERUM 2.9 mmol/L (3.5-5.1)
--- NOTE | 2020-03-30 16:46 | NUR ---
Follow-up Nutrition Assessment: 236B KIMO ROLLE 64M Dx: AMS PMHx: AFIB, CAD, HTN, asthma, COPD, GERD, gastritis, bladder CA Labs: (03/30) Na 146H, K 3.3L, Cl 111H, BG 220H, BUN 66H, Cr 2.3H, H/H 9.9/30L Meds: Alphagan, Colace, Cordarone, Ditropan, Eliquis, Flomax, Humulin, Lantus, Lipitor, Lopressor, Mestinon, miralax, Pepcid, Prilosec, singulair, Solu-Medrol, Trusopt, Campbell, Vitamin B-12, Vitamin D, Xalatan PRN meds: D50%, Morphine, Phenergan, Zofran, Zosyn Diet: Puree PO Intake: No flowsheet entry yet for PO diet. Weights: (03/30)113.9kg, Bedscale: 110kg/243.5lbs (03/22) 121kg/266lbs, (03/20)118kg, (03/19)113kg/249lbs Edema: BLE 3+ edema, BUE 2+ edema Last BM: 03/28 Skin: skin tears to BLE, blanchable redness to coccyx Yonny: [address] (03/27): Pt seen trach to vent, TF Jevity 1.2 hanging and infusing at 70 mL/hr. Per nursing, 0 mL residual. Pt tolerating well. No GI distresses. No other nutrition-related issues at this time. RD Note (03/30): Pt was extubated and transferred out of ICU. Per RN reassessment note (03/30), pt wanted to leave AMA, and pt tolerating puree diet. Pt was seen lying in bed with two correction officers by bedside. Pt did not have any s/s of distress. Pt reported fair appetite with no GI distress, and pt also reported drinking ensure comes with meals. Pt mentioned that his last BM was today. Estimated Nutritional Needs Based on adjusted body weight of 95 kg. Energy: 5072-8615 kcal/d vs 2442 kca/d (25-30 kcal/kg vs [id number] for vent support) Protein: 114-143 gm/d (1.2-1.5 gm/kg for vent support) Fluid: 2812-7958 mL/d (1 mL/kcal) or per MD. Nutrition Diagnosis: (resolved) 1. Inadequate protein/energy intakes related to Pt unable to ingest diet d/t ventilation as evidenced by Pt meeting < 75% estimated needs. (new) 2. 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 Intervention: 1. Recommend continue puree diet as tolerate 2. Recommend continue ensure with breakfast 3. RD will implement ONS for diet if PO meeting < 75% estimated kcal needs and protein needs upon follow up Monitor/Evaluate: Goal: Have pt meet at least 75% of estimated needs Monitor: PO intake, Labs, GI function, Body weight F/U in 3-5 days as moderate risk 04/02-7
--- NOTE | 2020-03-30 17:21 | NUR ---
KLOR CON 40 MEQ PO X1 GIVEN FOR k+ OF 2.9. TYLENOL PO PRN GIVEN FOR BACK PAIN 03/08. RESP EVEN AND UNLABORED. CALL LIGHT WITHIN REACH.
--- NOTE | 2020-03-30 17:51 | NUR ---
PT IS TO TRANSFER TO [facility] ROOM 114. REPORT GIVEN TO LEONARD CLAUDIO AT [phone]. PT TO BE FOLLOWED BY DR. HOLDER. PT TO [facility] AFTER 1930.
[2020-03-30 18:04] VITALS: BP 139/70
--- NOTE | 2020-03-30 18:20 | NUR ---
PT IS RESTING IN BED COMFORTABLY, NC AT [address] DEUTSCH STATED TO PLACE DISCHARGE ORDERS FOR PT. PT IS TO KEEP R FEMORAL CENTRAL LINE AND LAO CATH IN PLACE FOR TRANSFER. ORDERS NOTED AND CARRIED OUT. PT MADE AWARE. WILL ENDORSE ALL CARE TO NOC SHIFT RN.
--- NOTE | 2020-03-30 20:06 | NUR ---
PT DISCHARGE TO [facility].P/U BY 2 ATTENDANTS [facility].DISCHARGE PACKETS GIVEN. FEMORAL CATH SL AND FLUSHING WELL.GUARDS AT BEDSIDE.IN NO DISTRESS.
== END 2020-03-30 20:05 | DRG 870 ==
LOC: ED 05:57 → DU 08:47 → IC 08:47 → DU 03-27 06:31 → MU 03-28 17:40
PROVIDERS: Emergency Medicine; Internal Medicine; ADMIT Internal Medicine; ATTEND Internal Medicine
PROC: 02HV33Z Insertion of Infusion Device into Superior Vena Cava, Percutaneous Approach (ICD-10-PCS; principal; 2020-03-18)
PROC: B548ZZA Ultrasonography of Superior Vena Cava, Guidance (ICD-10-PCS; 2020-03-18)
PROC: 5A1955Z Respiratory Ventilation, Greater than 96 Consecutive Hours (ICD-10-PCS; 2020-03-18)
PROC: 0BH17EZ Insertion of Endotracheal Airway into Trachea, Via Natural or Artificial Opening (ICD-10-PCS; 2020-03-18)
DX: A41.9 Sepsis, unspecified organism (principal); R65.21 Severe sepsis with septic shock; G93.41 Metabolic encephalopathy; J96.01 Acute respiratory failure with hypoxia; J18.9 Pneumonia, unspecified organism; N17.9 Acute kidney failure, unspecified; E87.0 Hyperosmolality and hypernatremia; I12.9 Hypertensive chronic kidney disease with stage 1 through stage 4 chronic kidney disease, or unspecified chronic kidney disease; E11.22 Type 2 diabetes mellitus with diabetic chronic kidney disease; N18.9 Chronic kidney disease, unspecified; Z88.8 Allergy status to other drugs, medicaments and biological substances; J44.9 Chronic obstructive pulmonary disease, unspecified; I25.10 Atherosclerotic heart disease of native coronary artery without angina pectoris; Z85.51 Personal history of malignant neoplasm of bladder; Z86.711 Personal history of pulmonary embolism; G70.00 Myasthenia gravis without (acute) exacerbation; I48.0 Paroxysmal atrial fibrillation; Z20.828 Contact with and (suspected) exposure to other viral communicable diseases
CPT/HCPCS: 31500; 36600; 82962; 92526-GN; 92610-GN; A4628; G0378; G0480; J0282; J0696; J1100; J1160; J1265; J1650; J1720; J1815; J1940; J2060; J2250; J2270; J2310; J2370; J2543; J2765; J2920; J3010; J3370; J3480; J3490; J7030; J7040; J7042; J7050; J7060; J7070; J7120; P9047; Q0092; Q0162; U0003-CS